=== PATIENT | female | born 1940 | race Caucasian/White ===

== ENCOUNTER 2019-02-16 19:20 | Observation (INO) ==
--- NOTE | 2019-02-16 19:40 | ERNOTE ---
Lower Extremity HPI - Narrative Date of Service: 02/16/19 - General Lower Extremities Pain: ankle: left Time Seen by Provider: 02/16/19 19:32 Source: patient Exam Limitations: no limitations - Immun/Allergies/Home Medications Immunizations: IMMUNIZATION HX Immunizations Up to Date Yes History of Influenza Vaccine No Hx Pneumococcal Vaccination Yes Allergies/Adverse Reactions: Allergies Allergy/AdvReac Type Severity Reaction Status Date / Time camphor [From Vicks Vaporub] Allergy Itching Verified 02/16/19 19:28 eucalyptus Allergy Itching Verified 02/16/19 19:28 [From Vicks Vaporub] menthol [From Vicks Vaporub] Allergy Itching Verified 02/16/19 19:28 petrolatum,white Allergy Itching Verified 02/16/19 19:28 [From Vicks Vaporub] turpentine oil Allergy Itching Verified 02/16/19 19:28 [From Vicks Vaporub] poison oak extract AdvReac Mild rash Verified 02/16/19 19:28 [Poison [place] Extract] sulfamethoxazole AdvReac Mild Itching Verified 02/16/19 19:28 [From Bactrim DS] trimethoprim AdvReac Mild Itching Verified 02/16/19 19:28 [From Bactrim DS] Home Medications: HOME MEDICATIONS Calcium Carbonate/Vitamin D3 [Calcium 600 + Vit D 400 Tablet] 1 tab PO BID 09/25/14 [Last Taken Unknown] atorvastatin 20 mg tablet 20 mg PO DAILY #90 tab 06/25/18 [Last Taken Unknown] levothyroxine 75 mcg tablet 75 mcg PO DAILY #90 tab 06/25/18 [Last Taken Unknown] albuterol sulfate HFA 90 mcg/actuation aerosol inhaler 2 puff IH Q4H PRN #18 g 12/31/18 [Last Taken Unknown] ipratropium-albuterol 0.5 mg-3 mg(2.5 mg base)/3 mL nebulization soln 3 ml IH BID #90 ml 12/31/18 [Last Taken Unknown] Amlodipine Besylate 5 mg PO DAILY 01/28/19 [Last Taken Unknown] vit C 250 mg-E 200 unit-zinc 40 mg-copper 1 cv-anussf-fyegpa capsule 1 tab PO BI D 02/05/19 [Last Taken Unknown] Lisinopril [Zestril] 40 mg PO DAILY 02/16/19 [Last Taken Unknown] - Pain Score Pain Score #1 Pain Score: 10 - History of Present Illness Narrative: The patient is a 78 year old female who presents for left lateral ankle pain which has been present for 1 week. There are associated symptoms of fatigue and lateral ankle edema. The patient reports pain to left ankle, 10/10. There are no alleviating factors. There are aggravating factors of ROM and weight bearing. Previous treatments have included: Advil taken yesterday without improvement. The past medical history includes: DJD and hypothyroid. The social history is positive for former smoker. The patient has had no ill contacts. Patient denies known injury. Review of Systems - Review of Systems Constitutional: Present: fatigue. Absent: fever EYE: Present: no symptoms reported ENT: Present: no symptoms reported. Absent: ear pain, nasal drainage, sore throat Respiratory: Present: no symptoms reported, cough Cardiology: Present: no symptoms reported Gastrointestinal/Abdominal: Present: no symptoms reported. Absent: nausea, vomiting, diarrhea Genitourinary: Present: no symptoms reported Musculoskeletal: Present: joint pain, joint swelling Skin: Present: change in color Neurological: Present: no symptoms reported All Other Systems: All systems neg except as marked Medical History (Updated 02/16/19 @ 21:39 by GABE Correia) DJD (degenerative joint disease), lumbar Osteopenia Rosacea Spinal stenosis Thrombocytopenia Basal cell carcinoma Onset Date: ~2009 Femur fracture, right Foot fracture Radius fracture Surgical History: Surgical History (Updated 02/16/19 @ 21:39 by GABE Correia) H/O dilation and curettage Onset Date: ~2001 H/O removal of cyst Onset Date: ~2009 cyst removed from top of head, sternum, and a double cyst from throat-basil cell carcinoma Hip fracture requiring operative repair Onset Date: ~2015 CR with cephalomedullary fixation History of LAVH Onset Date: ~2009 History of carpal tunnel release Onset Date: ~2008 History of colonoscopy Onset Date: ~2010 History of total knee arthroplasty Onset Date: ~2014 S/P epidural steroid injection Family History: Family History (Updated 12/14/17 @ 12:15 by Shereen Schmitt) Brother Myocardial infarction Glaucoma Brother Glaucoma Brother Macular degeneration Father , Age 78 Cancer Lung Mother , Age 41 CVA (cerebral vascular accident) Hypertension Social History: (Last Reviewed 02/16/19 @ 19:38 by UNIQUE Rodriguez) Social History: Marital status: / lives independently: Yes household members: none current occupational status: retired Highest education level completed: 9th grade Tobacco: Smoking Status: Former smoker Alcohol: alcohol intake: never Dietary Habits: caffeine: Yes Physical Exam - Physical Exam General Appearance: Present: wd/wn, alert, mild distress Head Exam: Present: normal inspection Eye Exam: Normal inspection: bilateral Neck: Present: normal inspection Respiratory: Present: no respiratory distress, normal breath sounds, no accessory muscle use, lungs clear Cardiovascular/Chest: Present: regular rate, rhythm, no murmur Peripheral Pulses: N=norm/S=strong/W=weak/B=bound/A=absent: Dorsalis-pedis (L): Normal Extremity Exam: Present: decreased range of motion - pain and limitation with dorsiflexion and plantar flexion, bony tenderness, joint redness - left lateral ankle, joint swelling - left lateral ankle Neurological Exam: Present: alert, oriented, normal mood/affect, no motor/sensory deficits Skin Exam: Present: normal color, warm/dry Progress - Date and Time Seen: Date and Time: 02/16/19 20:51 In with assistance of for aspirate of left ankle synovial fluid. Medial approach, 1% Lidocaine used for local anesthesia, no fluid returned with use of 20g needle under sterile procedure. Discussed exam and lab findings with Hector Pop, will discuss with medicine. 02/16/19 21:03 Discussed case with , feels that the joint should be aspirated and if not available then admit for IV antibiotics. Hector Pop sent message via [employer], will present to attempt aspiration. 02/16/19 21:37 Small amount of synovial fluid obtained by Hector BERNAL and sent to lab for available testing. Discussed with and will admit for IV antibiotics with ordered testing pending. Will cover patient for cellulitis vs joint infection. After discussion with , requests Vanco and Rocephin. - Results and Orders Patient's Lab Results:: I have reviewed the patient's lab results. - Vital Signs Patient's Vital Signs:: I have reviewed the patient's vital signs. Vital Signs: Vital Signs 02/16/19 19:24 Temperature 37.1 C Pulse Rate 91 Respiratory Rate 16 Blood Pressure 176/71 H O2 Sat by Pulse Oximetry 98 - X-Ray X-Ray #1 X-Ray: ankle Interpretation: Reviewed by me X-ray Comments: No acute osseous abnormality. Arthritic changes. - Progress/Reassessment Chief Complaint: Ankle Injury/ Pain Progress:: Unchanged Departure Clinical Impression: Cellulitis Qualifiers: Site of cellulitis: extremity Site of cellulitis of extremity: lower extremity Laterality: left Qualified Code(s): L03.116 - Cellulitis of left lower limb - Departure Disposition: Still a patient Condition: Stable
[2019-02-16 20:01] LABS: Hematocrit 39.8 % (37.0-47.0); Hemoglobin 13.5 gm/dL (12.5-16.0); Mean Cell Volume 85.2 fl (78-100); Mean Corpuscular Hemoglobin 28.9 pg (27-31); Mean Corpuscular Hgb Conc 33.9 g/dl (32-36); Mean Platelet Volume 11.1 fl (8-12.5); Platelet Count 167 K/mm3 (150-450); Red Blood Count 4.67 M/mm3 (4.2-5.4); White Blood Count 14.8 K/mm3 (4.0-10.5)
[2019-02-16 20:05] LABS: Total Cells Counted 100
[2019-02-16 20:15] LABS: Dohle Bodies 1+; Lymphocyte 14 % (20-51); Monocyte 11 % (0-9); Neutrophil 75 % (42-75); Neutrophil # 11.1 K/mm3 (1.3-6.0); Platelet Estimate Normal (NORMAL)
[2019-02-16] MEDS ORDERED: HYDROcodone/ACETAMINOPHEN 1 EACH TABLET PO ONE (21:27)
[2019-02-16 21:32] LABS: Albumin * 3.4 gm/dl (3.4-5.0); Anion Gap 14.4 mmol/L (6.8-13.8); BUN/Creatinine Ratio 20.5 (9.0-21.6); Bilirubin, Total 0.7 mg/dL (0.0-1.1); Ca. Corrected For Albumin 9.5 mg/dL (8.4-10.2); Calcium * 9.3 mg/dL (7.9-10.9); Carbon Dioxide 27.1 mmol/L (24-32.6); Potassium 3.5 mmol/L (3.4-4.6); Total Protein 7.2 gm/dL (6.2-8.2)
[2019-02-16 21:35] LABS: Body Fluid Appearance BLOODY (CLEAR); Body Fluid Color RED (COLORLESS); Body Fluid WBC QNS /uL (0-1000)
--- NOTE | 2019-02-16 21:39 | CONS ---
[facility] - General Date of Service: 02/16/19 Narrative: 78-year-old female presents to the ER with worsening left ankle pain. She notes that it is gradually worsened over the past week. She also has had an area of redness that is continued to enlarge around her left ankle and foot. She notes this may have happened in the past and was treated with oral antibiotics. She notes that her pain is 910/10 currently. She has difficult pain with weightbearing and motion. Patient notes her pain is mildly better with rest however continues to be significant. Source: patient Exam Limitations: no limitations - History of Present Illness Allergies/Adverse Reactions: Allergies camphor [From Vicks Vaporub] Allergy (Verified 02/16/19 19:28) Itching eucalyptus [From Vicks Vaporub] Allergy (Verified 02/16/19 19:28) Itching menthol [From Vicks Vaporub] Allergy (Verified 02/16/19 19:28) Itching petrolatum,white [From Vicks Vaporub] Allergy (Verified 02/16/19 19:28) Itching turpentine oil [From Vicks Vaporub] Allergy (Verified 02/16/19 19:28) Itching poison oak extract [Poison [place] Extract] Adverse Reaction (Mild, Verified 02/16/19 19:28) rash sulfamethoxazole [From Bactrim DS] Adverse Reaction (Mild, Verified 02/16/19 19:28) Itching trimethoprim [From Bactrim DS] Adverse Reaction (Mild, Verified 02/16/19 19:28) Itching Home Medications: Home Medications Medication Instructions Recorded Last Taken Calcium Carbonate/Vitamin D3 1 tab PO BID 09/25/14 Unknown [Calcium 600 + Vit D 400 Tablet] atorvastatin 20 mg tablet 20 mg PO DAILY #90 tab 06/25/18 Unknown levothyroxine 75 mcg tablet 75 mcg PO DAILY #90 tab 06/25/18 Unknown albuterol sulfate HFA 90 2 puff IH Q4H PRN #18 g 12/31/18 Unknown mcg/actuation aerosol inhaler ipratropium-albuterol 0.5 mg-3 3 ml IH BID #90 ml 12/31/18 Unknown mg(2.5 mg base)/3 mL nebulization soln Amlodipine Besylate 5 mg PO DAILY 01/28/19 Unknown vit C 250 mg-E 200 unit-zinc 40 1 tab PO BID 02/05/19 Unknown mg-copper 1 pg-zylaqw-jxzgid capsule Lisinopril [Zestril] 40 mg PO DAILY 02/16/19 Unknown Procedures ASSIST VAG HYSTER(LAVH) (05/25/09) Administration of wqjogvnxxj-exmoisj-kmwtxndpw, combined (04/22/11) Application of splint (04/22/11) Colonoscopy (08/16/10) D & C NEC (03/23/09) Injection of anesthetic into spinal canal for analgesia (03/04/11) Injection of other agent into spinal canal (03/04/11) Injection of steroid (03/04/11) LAPAROSCOP REMOVE OVARIES/TUBES (05/25/09) Other x-ray of lumbosacral spine (03/04/11) Reposition Right Upper Femur with Intramedullary Internal Fixation Device, Percutaneous Approach (11/04/15) Total knee replacement (10/06/14) Physical Examination - Exam Vital Signs: Vital Signs - Last Taken Temp 37.1 C 02/16/19 19:24 Pulse 91 02/16/19 19:24 Resp 16 02/16/19 19:24 BP 176/71 H 02/16/19 19:24 Pulse Ox 98 02/16/19 19:24 O2 Oxygen Delivery Method Room Air Constitutional: Present: Alert, Cooperative, No distress Extremity: Present: other - LLE--> mild area of erythema with mild edema about left ankle that extends over tarsal bones, brisk distal capillary refill, sensation intact light touch, 4+/5 ankle plantarflexion and dorsiflexion, mild pain with motion - Results and Findings: Lab/Microbiology results last 24 hrs: Abnormal/Pending Laboratory Last 24 HRS 02/16/19 02/16/19 19:55 19:55 WBC 14.8 H Lymphocytes % (Manual) 14 L Monocytes % (Manual) 11 H Neutrophils # (Manual) 11.1 H Monocytes # (Manual) 1.6 H C-Reactive Prot, Quant 12.0 H - Assessments/Findings (1) Infection of left foot Problem: Acute Plan - Plan Plan: -78-year-old female presents to the ER with worsening left foot pain -Basic labs are drawn revealed an elevated white count and CRP -Exam reveals area of erythema, concern for cellulitic infection versus deep joint infection -Aspiration was attempted only a small amount of synovial joint fluid was obtained, this was sent to lab for cell count, culture, Gram stain, crystals -Discussed with ER providers admittance to medicine team for possible cellulitis infection of the left foot, can continue to monitor if significant pain continues could consider radiology guided aspiration of the left ankle for better isolation of joint fluid -Recommend use of antibiotics and possible observation to monitor patient's continuing symptoms -Patient at this time will have continued care with medicine can call orthopedic provider if significant concern for joint infection continues -Noted area of erythema has been marked on 02/16/2019 at 2130 -Note patient also states that she has a previous history of similar type infections that have been treated with oral antibiotics in the past and have resolved she notes this does not happened recently
--- NOTE | 2019-02-16 21:43 | PN ---
Progess Note - Interim Date: 02/16/19 - Aspiration left ankle joint procedure Time: 21:40 Narrative: 02/16/19 21:40 Procedure note for left ankle joint aspiration -One attempt was made, a small amount less than 1 cc of synovial fluid that was blood-tinged was removed -Area was marked prior to aspiration, appropriate we cleaned with Betadine swabs -Sterile gloves and supplies were used to perform an ankle aspiration on the left using a 10 cc syringe with a 20-gauge needle through the anterior lateral approach -Hemostasis was obtained postoperatively, bandages applied -Patient tolerated the procedure well without significant complications -Patient was neurovascular intact prior to aspiration and post aspiration attempt
[2019-02-16] MEDS ORDERED: VANCOMYCIN HCL 1 GM in DEXTROSE 5 % IN WATER 250 ML IV ONE ×2 (21:47)
[2019-02-16] MEDS ORDERED: FLU VACC QS2019-20(6MOS UP)/PF 60 MCG/0.5 ML SYRINGE IM ONE (23:43)
[2019-02-17] MEDS: HYDROcodone/ACETAMINOPHEN 1 EACH TABLET PO PRN ×3 (00:53→13:22)
--- NOTE | 2019-02-17 08:29 | HP ---
Chief Complaint - Chief Complaint Date of Service: 02/17/19 Time of Service: 08:28 Chief Complaint: left ankle pain History of Present Illness: Patient with past medical history of hypertension, hypothyroidism presented with 5-day history of left ankle pain. She is also had less energy. It got to the point where she could not bear weight and she came to the ER. She did have some lateral erythema. She feels like she was treated with antibiotics in the past for skin infection. She also thinks her PCP has mentioned gout in the past. She tries to avoid going to the doctor. In the ED, joint aspiration was done by Ortho. She was started on antibiotics, vancomycin and Rocephin, for potential cellulitis. This morning, she reports possibly feeling a little bit better. She thinks the redness has improved. The aspirate from her ankle joint did show some uric acid crystals. No white blood cells were seen. She had an elevated CRP and a mildly elevated white blood cell count 14. Medical History (Updated 02/16/19 @ 23:14 by Colette Mcmahon RN) DJD (degenerative joint disease), lumbar Osteopenia Rosacea Spinal stenosis Thrombocytopenia Basal cell carcinoma Onset Date: ~2009 Femur fracture, right Foot fracture Radius fracture Surgical History: Surgical History (Updated 02/16/19 @ 21:39 by GABE Correia) H/O dilation and curettage Onset Date: ~2001 H/O removal of cyst Onset Date: ~2009 cyst removed from top of head, sternum, and a double cyst from throat-basil cell carcinoma Hip fracture requiring operative repair Onset Date: ~2015 CR with cephalomedullary fixation History of LAVH Onset Date: ~2009 History of carpal tunnel release Onset Date: ~2008 History of colonoscopy Onset Date: ~2010 History of total knee arthroplasty Onset Date: ~2014 S/P epidural steroid injection Family History: Family History (Updated 12/14/17 @ 12:15 by Shereen Schmitt) Brother Myocardial infarction Glaucoma Brother Glaucoma Brother Macular degeneration Father , Age 78 Cancer Lung Mother , Age 41 CVA (cerebral vascular accident) Hypertension Social History: (Last Reviewed 02/16/19 @ 23:16 by Colette Mcmahon RN) Social History: Marital status: / lives independently: Yes household members: none current occupational status: retired Highest education level completed: 9th grade Tobacco: Smoking Status: Former smoker Alcohol: alcohol intake: never Dietary Habits: caffeine: Yes Review Of Systems (GEN) - Review of Systems Generalized/Overall Review: Present: Fatigue. Absent: Fever Respiratory: Present: Shortness of Breath. Absent: Cough Cardiac: Absent: Chest Pain, Edema Abdominal: Absent: Nausea Genitourinary: Present: Urgency Musculoskeletal: Present: Joint Pain Neurological: Present: No Symptoms Reported Skin: Present: Change in Color Immunizations: IMMUNIZATION HX Immunizations Up to Date Yes History of Influenza Vaccine No Hx Pneumococcal Vaccination Yes Allergies/Adverse Reactions: Allergies Allergy/AdvReac Type Severity Reaction Status Date / Time camphor [From Vicks Vaporub] Allergy Itching Verified 02/16/19 23:17 eucalyptus Allergy Itching Verified 02/16/19 23:17 [From Vicks Vaporub] menthol [From Vicks Vaporub] Allergy Itching Verified 02/16/19 23:17 petrolatum,white Allergy Itching Verified 02/16/19 23:17 [From Vicks Vaporub] turpentine oil Allergy Itching Verified 02/16/19 23:17 [From Vicks Vaporub] poison oak extract AdvReac Mild rash Verified 02/16/19 23:17 [Poison [place] Extract] sulfamethoxazole AdvReac Mild Itching Verified 02/16/19 23:17 [From Bactrim DS] trimethoprim AdvReac Mild Itching Verified 02/16/19 23:17 [From Bactrim DS] Home Medications: HOME MEDICATIONS Calcium Carbonate/Vitamin D3 [Calcium 600 + Vit D 400 Tablet] 1 tab PO BID 09/25/14 [Last Taken Unknown] atorvastatin 20 mg tablet 20 mg PO DAILY #90 tab 06/25/18 [Last Taken Unknown] levothyroxine 75 mcg tablet 75 mcg PO DAILY #90 tab 06/25/18 [Last Taken Unknown] albuterol sulfate HFA 90 mcg/actuation aerosol inhaler 2 puff IH Q4H PRN #18 g 12/31/18 [Last Taken Unknown] ipratropium-albuterol 0.5 mg-3 mg(2.5 mg base)/3 mL nebulization soln 3 ml IH BID #90 ml 12/31/18 [Last Taken Unknown] Amlodipine Besylate 5 mg PO DAILY 01/28/19 [Last Taken Unknown] vit C 250 mg-E 200 unit-zinc 40 mg-copper 1 nd-mgaype-lnaczz capsule 1 tab PO BID 02/05/19 [Last Taken Unknown] Ibuprofen 400 mg PO PRN PRN 02/16/19 [Last Taken Unknown] Lisinopril [Zestril] 40 mg PO DAILY 02/16/19 [Last Taken Unknown] Exam - Exam Vital Signs: Vital Signs - Last Taken Temp 36.4 C 02/17/19 06:36 Pulse 82 02/17/19 06:36 Resp 16 02/17/19 06:36 BP 111/72 02/17/19 06:36 Pulse Ox 96 02/17/19 06:36 Constitutional: Present: Alert, Oriented x3, Cooperative, Well developed, No distress Respiratory: Present: lungs clear, normal breath sounds, no respiratory distress Cardiovascular/Chest: Present: regular rate, rhythm Abdomen: Present: Normal bowel sounds, soft, nontender Extremity: Absent: lower extremity edema Skin Exam: Present: other - Minimal erythema well within the borders of the delineated regions of her ankle Diagnostic Studies: Abnormal Lab Results 02/16/19 02/16/19 02/16/19 Range/Units 19:55 19:55 19:55 WBC 14.8 H (4.0-10.5) K/mm3 Lymphocytes % (Manual) 14 L (20-51) % Monocytes % (Manual) 11 H (0-9) % Neutrophils # (Manual) 11.1 H (1.3-6.0) K/mm3 Monocytes # (Manual) 1.6 H (0.0-1.0) k/mm3 Chloride 96 L (97-106) mmol/L Anion Gap 14.4 H (6.8-13.8) mmol/L Random Glucose 136 H (70-110) mg/dL ALT 11 L (19-67) U/L C-Reactive Prot, Quant 12.0 H (0.0-0.9) mg/dL Synovial Crystals (NO CRYSTALS) 02/16/19 Range/Units 21:29 WBC (4.0-10.5) K/mm3 Lymphocytes % (Manual) (20-51) % Monocytes % (Manual) (0-9) % Neutrophils # (Manual) (1.3-6.0) K/mm3 Monocytes # (Manual) (0.0-1.0) k/mm3 Chloride (97-106) mmol/L Anion Gap (6.8-13.8) mmol/L Random Glucose (70-110) mg/dL ALT (19-67) U/L C-Reactive Prot, Quant (0.0-0.9) mg/dL Synovial Crystals Uric acid crystals H (NO CRYSTALS) Microbiology 02/16/19 21:29 Gram Stain - Final Ankle - Left Laboratory Results WBC 14.8 K/mm3 (4.0-10.5) H 02/16/19 19:55 RBC 4.67 M/mm3 (4.2-5.4) 02/16/19 19:55 Hgb 13.5 gm/dL (12.5-16.0) 02/16/19 19:55 Hct 39.8 % (37.0-47.0) 02/16/19 19:55 MCV 85.2 fl (78-100) 02/16/19 19:55 MCH 28.9 pg (27-31) 02/16/19 19:55 MCHC 33.9 g/dl (32-36) 02/16/19 19:55 RDW 13.0 % (11.5-14.0) 02/16/19 19:55 Plt Count 167 K/mm3 (150-450) 02/16/19 19:55 MPV 11.1 fl (8-12.5) 02/16/19 19:55 75 % (42-75) 02/16/19 19:55 14 % (20-51) L 02/16/19 19:55 11 % (0-9) H 02/16/19 19:55 11.1 K/mm3 (1.3-6.0) H 02/16/19 19:55 2.1 k/mm3 (1.5-3.5) 02/16/19 19:55 1.6 k/mm3 (0.0-1.0) H 02/16/19 19:55 1+ 02/16/19 19:55 Normal (NORMAL) 02/16/19 19:55 Sodium 134 mmol/L (132-142) 02/16/19 19:55 135 mmol/L (130-142) 02/16/19 19:55 Potassium 3.5 mmol/L (3.4-4.6) 02/16/19 19:55 Chloride 96 mmol/L (97-106) L 02/16/19 19:55 Carbon Dioxide 27.1 mmol/L (24-32.6) 02/16/19 19:55 14.4 mmol/L (6.8-13.8) H 02/16/19 19:55 BUN 15 mg/dL (3-23) 02/16/19 19:55 0.73 mg/dL (0.4-1.4) 02/16/19 19:55 Est GFR (Non-Af Amer) 82 mL/min (60-130) 02/16/19 19:55 20.5 (9.0-21.6) 02/16/19 19:55 136 mg/dL (70-110) H 02/16/19 19:55 3.0 mg/dL (2.6-7.2) 02/16/19 19:55 Calcium 9.3 mg/dL (7.9-10.9) 02/16/19 19:55 Calcium Adj for Albumin 9.5 mg/dL (8.4-10.2) 02/16/19 19:55 0.7 mg/dL (0.0-1.1) 02/16/19 19:55 AST 11 U/L (0-48) 02/16/19 19:55 ALT 11 U/L (19-67) L 02/16/19 19:55 87 U/L (50-170) 02/16/19 19:55 C-Reactive Prot, Quant 12.0 mg/dL (0.0-0.9) H 02/16/19 19:55 7.2 gm/dL (6.2-8.2) 02/16/19 19:55 3.4 gm/dl (3.4-5.0) 02/16/19 19:55 Fluid Color Red (COLORLESS) 02/16/19 21:29 Fluid Appearance Bloody (CLEAR) 02/16/19 21:29 Fluid WBC QNS 02/16/19 21:29 Fluid RBC QNS 02/16/19 21:29 Fluid Diff Comment No wbc's seen 02/16/19 21:29 Synovial Crystals Uric acid crystals (NO CRYSTALS) H 02/16/19 21:29 Assessment/Plan - Assessment/Plan (1) Infection of left foot Assessment: Differential includes gout, septic joint, cellulitis. On this morning's exam, gout seems most likely. She appears to have possible tophi on her finger DIP joints of bilateral second digits. She reports being told she may have had gout in the past. 500 mg naproxen twice daily has been ordered. She was also started on antibiotics last night, specifically Vanco and Rocephin. Her physical exam does not appear to be cellulitic this morning. Her white cell count was slightly elevated at 14.8. CRP was elevated to 12. Procalcitonin pending. If this is elevated, will continue p.o. antibiotics, and if not, will DC. She reports drinking a small amount of wine when she can't sleep, which could contribute. Potential discharge later today if her pain is controlled. Problem: Acute (2) COPD (chronic obstructive pulmonary disease) Assessment: She reports this is a chronic issue, and her shortness of breath is not increased from baseline. COPD is listed in her problem list in her chart. Recommend PFTs as an outpatient if this has not already been done. Problem: Chronic Qualifiers: COPD type: COPD with acute exacerbation Qualified Code(s): J44.1 - Chronic obstructive pulmonary disease with (acute) exacerbation (3) HTN (hypertension) Assessment: Her blood pressure is a bit low this morning, so will hold her home amlodipine and lisinopril. Can restart if her blood pressure is persistently greater than 130/80. Problem: Chronic Qualifiers: Hypertension type: essential hypertension Qualified Code(s): I10 - Essential (primary) hypertension
[2019-02-17] MEDS ORDERED: ALBUTEROL SULFATE 2.5 MG/0.5 ML VIAL.NEB IH PRN (08:53)
[2019-02-17] MEDS ORDERED: ROSUVASTATIN CALCIUM 10 MG TABLET PO SCH (09:00)
[2019-02-17] MEDS ORDERED: NAPROXEN 500 MG TABLET PO SCH (09:00)
[2019-02-17] MEDS ORDERED: FLU VACC QS2019-20(6MOS UP)/PF 60 MCG/0.5 ML SYRINGE IM ONE (09:00)
[2019-02-17] MEDS ORDERED: ALBUTEROL SULFATE/IPRATROPIUM 3 ML NEBU IH SCH (09:00)
[2019-02-17] MEDS ORDERED: LEVOTHYROXINE SODIUM 75 MCG TABLET PO SCH (09:00)
[2019-02-17] MEDS ORDERED: VANCOMYCIN HCL 1.5 GM in DEXTROSE 5 % IN WATER 500 ML IV SCH ×2 (11:00)
--- NOTE | 2019-02-17 14:36 | DS ---
(1) Gout Problem: Acute Qualifiers: Gout site: ankle (2) COPD (chronic obstructive pulmonary disease) Problem: Chronic Qualifiers: COPD type: COPD with acute exacerbation Qualified Code(s): J44.1 - Chronic obstructive pulmonary disease with (acute) exacerbation (3) HTN (hypertension) Problem: Chronic Qualifiers: Hypertension type: essential hypertension Qualified Code(s): I10 - Essential (primary) hypertension Date of Discharge:: 02/17/19 Description of Stay: Patient with past medical history of hypertension, hypothyroidism presented with 5-day history of left ankle pain. She is also had less energy. It got to the point where she could not bear weight and she came to the ER. She did have some lateral erythema. She feels like she was treated with antibiotics in the past for skin infection. She also thinks her PCP has mentioned gout in the past. S he tries to avoid going to the doctor. In the ED, joint aspiration was done by Ortho. She was started on antibiotics, vancomycin and Rocephin, for potential cellulitis. The morning after admission, she reports possibly feeling a little bit better. She thinks the redness has improved. The aspirate from her ankle joint did show some uric acid crystals. No white blood cells were seen. She had an elevated CRP and a mildly elevated white blood cell count 14. Procalcitonin was not elevated, and the abx were stopped, and 500 mg naproxen bid was started. The day of DC, she was able to walk with a walker without difficulty. Discussed reducing red wine, hard cheese, beef intake. Procedures Performed: see notes below - ankle joint aspiration Results and Findings: Lab Pending Results 02/16/19 19:55: WBC 14.8 H, RBC 4.67, Hgb 13.5, Hct 39.8, MCV 85.2, MCH 28.9, MCHC 33.9, RDW 13.0, Plt Count 167, MPV 11.1, Neutrophils % (Manual) 75, Lymphocytes % (Manual) 14 L, Monocytes % (Manual) 11 H, Neutrophils # (Manual) 11.1 H, Lymphocytes # (Manual) 2.1, Monocytes # (Manual) 1.6 H, Dohle Bodies 1+, Platelet Estimate Normal 02/16/19 19:55: Uric Acid 3.0, C-Reactive Prot, Quant 12.0 H 02/16/19 19:55: Sodium 134, Plasma Sodium 135, Potassium 3.5, Chloride 96 L, Ca rbon Dioxide 27.1, Anion Gap 14.4 H, BUN 15, Creatinine 0.73, Est GFR (Non-Af Amer) 82, BUN/Creatinine Ratio 20.5, Random Glucose 136 H, Calcium 9.3, Calcium Adj for Albumin 9.5, Total Bilirubin 0.7, AST 11, ALT 11 L, Alkaline Phosphatase 87, Total Protein 7.2, Albumin 3.4 02/16/19 21:29: Fluid Color Red, Fluid Appearance Bloody, Fluid WBC QNS, Fluid RBC QNS, Fluid Diff Comment No wbc's seen, Synovial Crystals Uric acid crystals H 02/17/19 : Procalcitonin Less than 0.05 L Discharge Location: Home Disposition: Home self-care Condition: Stable Discharge Activity: Activity as tolerated Discharge Diet: General/regular food Referrals: Nancy Ruiz MD [Primary Care Provider] - One Week Prescriptions (Any new or edited meds): Naproxen [Naprosyn] 500 mg PO BID #13 tab Complete Home Medications List: Complete Home Medication List: Calcium Carbonate/Vitamin D3 [Calcium 600 + Vit D 400 Tablet] 1 tab PO BID 09/25/14 atorvastatin 20 mg tablet 20 mg PO DAILY #90 tab 06/25/18 levothyroxine 75 mcg tablet 75 mcg PO DAILY #90 tab 06/25/18 albuterol sulfate HFA 90 mcg/actuation aerosol inhaler 2 puff IH Q4H PRN #18 g 12/31/18 ipratropium-albuterol 0.5 mg-3 mg(2.5 mg base)/3 mL nebulization soln 3 ml IH BID #90 ml 12/31/18 Amlodipine Besylate 5 mg PO DAILY 01/28/19 vit C 250 mg-E 200 unit-zinc 40 mg-copper 1 [id number] capsule 1 tab PO BID 02/05/19 Ibuprofen 400 mg PO PRN PRN 02/16/19 Lisinopril [Zestril] 40 mg PO DAILY 02/16/19 Naproxen [Naprosyn] 500 mg PO BID #13 tab 02/17/19
[2019-02-17 18:34] VITALS: BP 142/64
[2019-02-18] MEDS ORDERED: amLODIPine BESYLATE 5 MG TABLET PO SCH (09:00)
[2019-02-18] MEDS ORDERED: LISINOPRIL 40 MG TABLET PO SCH (09:00)
== END 2019-02-17 16:15 | disposition home or self-care (01) ==
LOC: ER 19:20 → MS 19:20
PROVIDERS: ADMIT Family Medicine; ATTEND Internal Medicine
CPT/HCPCS: 36415; 73610; 80053; 84145; 84550; 85025; 86140; 87040; 87205; 89051; 89060; 90686; 94640; 94664; 96365; 96366; 96367; 99285; G0008; G0378

== ENCOUNTER 2020-10-20 12:07 | Inpatient (IN) ==
--- NOTE | 2020-10-20 12:30 | ERNOTE ---
Medical Problem HPI - Narrative Date of Service: 10/20/20 - General Chief Complaint: Nausea/Vomiting Time Seen by Provider: 10/20/20 12:13 Source: patient, EMS Exam Limitations: no limitations - Immun/Allergies/Home Medications Immunizations: IMMUNIZATION HX Immunizations Up to Date Yes History of Influenza Vaccine Yes Hx Pneumococcal Vaccination Yes Allergies/Adverse Reactions: Allergies camphor [From Vicks Vaporub] Allergy (Verified 10/13/20 09:30) Itching eucalyptus [From Vicks Vaporub] Allergy (Verified 10/13/20 09:30) Itching menthol [From Vicks Vaporub] Allergy (Verified 10/13/20 09:30) Itching petrolatum,white [From Vicks Vaporub] Allergy (Verified 10/13/20 09:30) Itching turpentine oil [From Vicks Vaporub] Allergy (Verified 10/13/20 09:30) Itching poison oak extract [Poison [place] Extract] Adverse Reaction (Mild, Verified 10/13/20 09:30) rash sulfamethoxazole [From Bactrim DS] Adverse Reaction (Mild, Verified 10/13/20 09:30) Itching trimethoprim [From Bactrim DS] Adverse Reaction (Mild, Verified 10/13/20 09:30) Itching Home Medications: HOME MEDICATIONS Calcium Carbonate/Vitamin D3 [Calcium 600 + Vit D 400 Tablet] 1 tab PO BID 09/25/14 [Last Taken Unknown] ipratropium 0.5 mg-albuterol 3 mg (2.5 mg base)/3 mL nebulization soln 3 ml IH BID #90 ml 12/31/18 [Last Taken Unknown] vit C 250 mg-vit E 90 mg-zinc 40 mg-copper 1 ez-[id number]-[id number] capsule 1 tab PO BID 02/05/19 [Last Taken Unknown] Ibuprofen 400 mg PO PRN PRN 02/16/19 [Last Taken Unknown] Naproxen [Naprosyn] 500 mg PO BID #13 tab 02/17/19 [Last Taken Unknown] lisinopril 20 mg tablet 40 mg PO DAILY 05/08/19 [Last Taken Unknown] tramadol 50 mg tablet 50 mg PO TID PRN #45 tab 11/06/19 [Last Taken Unknown] albuterol sulfate 90 mcg/actuation aerosol inhaler 2 puff IH Q4H PRN #18 g 03/26/20 [Last Taken Unknown] atorvastatin 20 mg tablet 20 mg PO DAILY #90 tab 07/02/20 [Last Taken Unknown] levothyroxine 75 mcg tablet 75 mcg PO DAILY #90 tab 07/02/20 [Last Taken Unknown] Colchicine [Colcrys] 0.6 mg PO prn 10/07/20 [Last Taken Unknown] Cyclobenzaprine HCl [Flexeril] 10 mg PO TID PRN #20 tab 10/07/20 [Last Taken Unknown] Vit A/Vit C/Vit E/Zinc/Copper [Preservision Areds Tablet] 2 ea PO DAILY 10/07/20 [Last Taken Unknown] bumetanide 2 mg tablet 2 mg PO DAILY #30 tab 10/13/20 [Last Taken Unknown] levofloxacin 500 mg tablet 500 mg PO DAILY 10 Days #10 tab 10/13/20 [Last Taken Unknown] - History of Present History Narrative: Diagnosed with pneumonia last week 10/10 had large stool this am and felt very weak, [facility]. Alert c/o loose stool and weakness. Not SOB not confused no fever. Date (Duration): 10/20/20 Time (Timing): 10:00 Timing: constant Severity: moderate Review of Systems - Review of Systems Constitutional: Present: See HPI, weakness ENT: Present: no symptoms reported Gastrointestinal/Abdominal: Present: See HPI, diarrhea, eating less Genitourinary: Present: no symptoms reported Psych: Present: no symptoms reported Medical History (Last Reviewed 10/20/20 @ 12:28 by Diego Schwartz MD) COPD (chronic obstructive pulmonary disease) Neck strain DJD (degenerative joint disease), lumbar Osteopenia Rosacea Spinal stenosis Thrombocytopenia Basal cell carcinoma Onset Date: ~2009 Femur fracture, right Foot fracture Radius fracture Surgical History: Surgical History (Last Reviewed 10/20/20 @ 12:28 by Diego Schwartz MD) H/O dilation and curettage Onset Date: ~2001 H/O removal of cyst Onset Date: ~2009 cyst removed from top of head, sternum, and a double cyst from throat-basil cell carcinoma Hip fracture requiring operative repair Onset Date: ~2015 CR with cephalomedullary fixation History of LAVH Onset Date: ~2009 History of carpal tunnel release Onset Date: ~2008 History of colonoscopy Onset Date: ~2010 History of total knee arthroplasty Onset Date: ~2014 S/P epidural steroid injection Family History: Family History (Last Reviewed 10/20/20 @ 12:28 by Diego Schwartz MD) Brother Glaucoma Myocardial infarction Brother Glaucoma Brother Macular degeneration Father , Age 78 Cancer Lung Mother , Age 41 Hypertension CVA (cerebral vascular accident) Social History: (Last Reviewed 10/20/20 @ 12:28 by Diego Schwartz MD) Social History: Marital status: / lives independently: Yes household members: none current occupational status: retired Highest level of school completed/degree received: 9th grade Tobacco: Smoking Status: Former smoker Alcohol: alcohol intake: never Dietary Habits: caffeine: Yes Physical Exam - Physical Exam General Appearance: Present: wd/wn, alert, no apparent distress Head Exam: Present: normal inspection Eye Exam: Normal inspection: bilateral Ears, Nose, Throat: Present: normal ENT inspection Respiratory: Present: no respiratory distress, decreased breath sounds - Decreased on R hemithorax Cardiovascular/Chest: Present: regular rate, rhythm, no murmur Gastrointestinal/Abdominal: Present: normal bowel sounds, nondistended, soft Rectal Exam: Present: other - 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 Results and Orders: Laboratory Tests 10/20/20 12:23 Sodium 140 Potassium 3.2 L Chloride 98 Carbon Dioxide 31.1 Anion Gap 14.1 H BUN 30 H D Creatinine 0.98 Random Glucose 145 H Laboratory Tests 11/06/15 11/07/15 12/09/19 05:50 05:03 15:50 WBC RBC Hgb Hct MCV MCH MCHC Plt Count Neutrophils % (Manual) Segmented Neutrophils 89 H Band Neutrophils 4 H Lymphocytes % ESR 22 H 10/10/20 10/20/20 20:00 12:23 WBC 35.1 H RBC 5.43 H Hgb 14.8 Hct 45.7 MCV 84.2 MCH 27.3 MCHC 32.4 Plt Count 258 Neutrophils % (Manual) 85 H Segmented Neutrophils Band Neutrophils Lymphocytes % 18.3 L ESR Laboratory Tests 10/20/20 12:23 Lactic Acid, Venous 2.8 H* - Vital Signs Patient's Vital Signs:: I have reviewed the patient's vital signs. Vital Signs: Vital Signs 10/20/20 12:09 Temperature 36.7 C Pulse Rate 98 Respiratory Rate 17 Blood Pressure 186/76 H O2 Sat by Pulse Oximetry 97 - Progress/Reassessment Chief Complaint: Nausea/Vomiting Progress:: Unchanged Progress Note-Subjective: 10/20/20 14:02 Pt remains weak, nauseous. WBC 35.1 Lactate 2.8 but CXR read as unremarkable. Blood cultures and urine culture requested, may be obscured by treatment CASING COOKER with Levaquin. I have paged Dr. Ruiz requesting admission for IVF and antibiotics. Awaiting call back. 10/20/20 14:20 Dr. Ruiz agrees wtih admit due to failure of outpt tx, requests Rocephin IV. See orders. - Transfer of Care Expected Disposition: Admit - Failure of outpatient tx. Departure Clinical Impression: UTI (urinary tract infection), bacterial, Leukocytosis - Departure Disposition: Short Term Hospital Inpatient Condition: Fair Additional Instructions: Admission discussed with Dr. Sands See orders. Referrals: Nancy Ruiz MD [Primary Care Provider] -
[2020-10-20 12:35] LABS: Hematocrit 45.7 % (37.0-47.0); Hemoglobin 14.8 gm/dL (12.5-16.0); Mean Cell Volume 84.2 fl (78-100); Mean Corpuscular Hemoglobin 27.3 pg (27-31); Mean Corpuscular Hgb Conc 32.4 g/dl (32-36); Mean Platelet Volume 11.9 fl (8-12.5); Platelet Count 258 K/mm3 (150-450); Red Blood Count 5.43 M/mm3 (4.2-5.4); Red Cell Distribution Width 13.6 % (11.5-14.0); White Blood Count 35.1 K/mm3 (4.0-10.5)
[2020-10-20 12:39] LABS: Total Cells Counted 100
[2020-10-20] MEDS ORDERED: NORMAL SALINE 1,000 ML IV ONE (12:49)
[2020-10-20 12:50] LABS: Albumin * 3.7 gm/dl (3.4-5.0); Anion Gap 14.1 mmol/L (6.8-13.8); BUN/Creatinine Ratio 30.6 (9.0-21.6); Bilirubin, Total 1.1 mg/dL (0.0-1.1); Ca. Corrected For Albumin 9.5 mg/dL (8.4-10.2); Calcium * 9.6 mg/dL (7.9-10.9); Carbon Dioxide 31.1 mmol/L (24-32.6); Potassium 3.2 mmol/L (3.4-4.6); Total Protein 7.2 gm/dL (6.2-8.2)
[2020-10-20 12:53] LABS: Lymphocyte 6 % (20-51); Monocyte 9 % (0-9); Neutrophil 85 % (42-75); Neutrophil # 29.8 K/mm3 (1.3-6.0); Platelet Estimate Normal (NORMAL); RBC Morphology Normal (NORMAL)
[2020-10-20] MEDS ORDERED: ALBUTEROL SULFATE 2.5 MG/3 ML VIAL.NEB IH ONE (13:14)
[2020-10-20] MEDS ORDERED: ONDANSETRON HCL/PF 2 MG/ML VIAL IV ONE (13:16)
[2020-10-20] MEDS ORDERED: cefTRIAXone SODIUM 1,000 MG/100 ML BAG IV ONE (14:19)
[2020-10-20 14:40] LABS: Urine Bilirubin Negative (NEGATIVE); Urine Blood Negative /ul (NEGATIVE); Urine Ketone Negative (NEGATIVE); Urine Nitrite Negative (NEGATIVE); Urine Protein 30 mg/dL (NEGATIVE); Urine Specific Gravity >=1.030 SP.GR. (1.005-1.010); Urine Urobilinogen Normal (NORMAL)
[2020-10-20 14:55] LABS: Urine Appearance Clear (CLEAR); Urine Bacteria TRACE; Urine Color Yellow; Urine Hyaline Cast 0-5 /LPF; Urine Mucus TRACE; Urine RBC TRACE /hpf (0-5); Urine WBC TRACE /hpf (0-5)
--- NOTE | 2020-10-20 16:21 | HP ---
Chief Complaint - Chief Complaint Date of Service: 10/20/20 Time of Service: 16:10 Chief Complaint: very weak History of Present Illness: Naomi Levin is a 80-year-old white female with past medical history significant for COPD, degenerative disc disease of the lumbar spine, spinal stenosis, idiopathic thrombocytopenia, gout who was admitted on 10/20/2020 because of sensation of feeling very weak. The patient was seen in the emergency room on 10/10/2020 and was treated with IV Rocephin x 1 and sent home on ciprofloxacin for pneumonia and UTI. She followed up with me on 10/13/2020 and she was still was not feeling well. Her chest x-ray showed chronic type findings with no acute cardiopulmonary findings. Her CT angiogram on 10/10/2020 did show bibasilar heterogeneous opacities possibly atelectasis but cannot rule out superimposed infection or aspiration. It was negative for his pulmonary embolism. The report of her urine culture and sensitivity came out late in the afternoon and it showed E. coli sensitive to both ciprofloxacin and Levaquin. Since we do not usually use ciprofloxacin for pneumonia we changed it to Levaquin. We also gave her prednisone 40 mg PO Q daily for 5 days and continued with her breathing treatments- inhalers and nebulizers for her shortness of breath and wheezing. She was instructed to return to clinic in 1 week and stay on a potassium rich diet list. The patient had runny large bowel movement this morning and felt very weak after that and so they called EMS. In the emergency room she was found to have a WBC count of 35,000 and a lactate of 2.8, K 3.2, Cr 0.98. Her chest x-ray showed chronic findings with no acute infiltrates. Her urinalysis was also unremarkable. The patient continued to be very weak and so she was admitted for further evaluation treatment having failed outpatient therapy. Medical History (Last Reviewed 10/20/20 @ 13:08 by Gina Myers RN) COPD (chronic obstructive pulmonary disease) Neck strain DJD (degenerative joint disease), lumbar Osteopenia Rosacea Spinal stenosis Thrombocytopenia Basal cell carcinoma Onset Date: ~2009 Femur fracture, right Foot fracture Radius fracture Surgical History: Surgical History (Last Reviewed 10/20/20 @ 13:08 by Gina Myers RN) H/O dilation and curettage Onset Date: ~2001 H/O removal of cyst Onset Date: ~2009 cyst removed from top of head, sternum, and a double cyst from throat-basil cell carcinoma Hip fracture requiring operative repair Onset Date: ~2015 CR with cephalomedullary fixation History of LAVH Onset Date: ~2009 History of carpal tunnel release Onset Date: ~2008 History of colonoscopy Onset Date: ~2010 History of total knee arthroplasty Onset Date: ~2014 S/P epidural steroid injection Family History: Family History (Last Reviewed 10/20/20 @ 13:08 by Gina Myers RN) Brother Myocardial infarction Glaucoma Brother Glaucoma Brother Macular degeneration Father , Age 78 Cancer Lung Mother , Age 41 CVA (cerebral vascular accident) Hypertension Social History: (Last Updated 10/20/20 @ 17:58 by Nancy Ruiz MD) Social History: Marital status: / lives independently: Yes household members: none current occupational status: retired Highest level of school completed/degree received: 9th grade Tobacco: Smoking Status: Former smoker Alcohol: alcohol intake: never Dietary Habits: caffeine: Yes Review Of Systems (GEN) - Review of Systems Generalized/Overall Review: Present: Weakness, Chills. Absent: Fever, Weight loss, Weight gain EENTM: Absent: Blurred Vision, Double Vision Respiratory: Present: Cough. Absent: Shortness of Breath, Orthopnea, Wheezing Cardiac: Absent: Chest Pain, Edema, Palpitations Abdominal: Present: Abdominal Pain. Absent: Nausea, Vomiting Genitourinary: Present: Urgency, Frequency. Absent: Burning, Itching Musculoskeletal: Present: Joint Pain, Back Pain Neurological: Absent: Headache Skin: Absent: Lesions, Rash Misc: All systems neg except as marked Immunizations: IMMUNIZATION HX Immunizations Up to Date Yes History of Influenza Vaccine Yes Hx Pneumococcal Vaccination Yes Allergies/Adverse Reactions: Allergies Allergy/AdvReac Type Severity Reaction Status Date / Time camphor [From Vicks Vaporub] Allergy Itching Verified 10/20/20 16:24 eucalyptus Allergy Itching Verified 10/20/20 16:24 [From Vicks Vaporub] menthol [From Vicks Vaporub] Allergy Itching Verified 10/20/20 16:24 petrolatum,white Allergy Itching Verified 10/20/20 16:24 [From Vicks Vaporub] turpentine oil Allergy Itching Verified 10/20/20 16:24 [From [employer] Vaporub] poison oak extract AdvReac Mild rash Verified 10/20/20 16:24 [Poison [place] Extract] sulfamethoxazole AdvReac Mild Itching Verified 10/20/20 16:24 [From Bactrim DS] trimethoprim AdvReac Mild Itching Verified 10/20/20 16:24 [From Bactrim DS] Home Medications: HOME MEDICATIONS Calcium Carbonate/Vitamin D3 [Calcium 600 + Vit D 400 Tablet] 1 tab PO BID 09/25/14 [Last Taken Unknown] ipratropium 0.5 mg-albuterol 3 mg (2.5 mg base)/3 mL nebulization soln 3 ml IH BID #90 ml 12/31/18 [Last Taken Unknown] vit C 250 mg-vit E 90 mg-zinc 40 mg-copper 1 [id number]-wsfbcs capsule 1 tab PO BID 02/05/19 [Last Taken Unknown] Ibuprofen 400 mg PO PRN PRN 02/16/19 [Last Taken Unknown] Naproxen [Naprosyn] 500 mg PO BID #13 tab 02/17/19 [Last Taken Unknown] lisinopril 20 mg tablet 40 mg PO DAILY 05/08/19 [Last Taken Unknown] tramadol 50 mg tablet 50 mg PO TID PRN #45 tab 11/06/19 [Last Taken Unknown] albuterol sulfate 90 mcg/actuation aerosol inhaler 2 puff IH Q4H PRN #18 g 03/26/20 [Last Taken Unknown] atorvastatin 20 mg tablet 20 mg PO DAILY #90 tab 07/02/20 [Last Taken Unknown] levothyroxine 75 mcg tablet 75 mcg PO DAILY #90 tab 07/02/20 [Last Taken Unknown] Colchicine [Colcrys] 0.6 mg PO prn 10/07/20 [Last Taken Unknown] Cyclobenzaprine HCl [Flexeril] 10 mg PO TID PRN #20 tab 10/07/20 [Last Taken Unknown] Vit A/Vit C/Vit E/Zinc/Copper [Preservision Areds Tablet] 2 ea PO DAILY 10/07/20 [Last Taken Unknown] bumetanide 2 mg tablet 2 mg PO DAILY #30 tab 10/13/20 [Last Taken Unknown] levofloxacin 500 mg tablet 500 mg PO DAILY 10 Days #10 tab 10/13/20 [Last Taken Unknown] Exam - Exam Vital Signs: Vital Signs - Last Taken Temp 36.7 C 10/20/20 12:09 Pulse 98 10/20/20 14:49 Resp 17 10/20/20 14:49 BP 145/64 10/20/20 14:49 Pulse Ox 95 10/20/20 14:49 Constitutional: Present: Alert, Oriented x3, Cooperative ENT Exam: Present: hearing grossly normal Eye Exam: bilateral eye: normal inspection, PERRL, EOMI Neck: Present: supple. Absent: lymphadenopathy (R), lymphadenopathy (L) Respiratory: Present: decreased breath sounds, crackles - fine, No rales, No wheezing Cardiovascular/Chest: Present: regular rate, rhythm, no JVD, no murmur Abdomen: Present: Normal bowel sounds, soft, tender - Slightly tender left lower quadrant, distended - Slightly distended Extremity: Present: no pedal edema, no calf tenderness Diagnostic Studies: Abnormal Lab Results 10/20/20 10/20/20 10/20/20 Range/Units 12:23 12:23 12:23 WBC 35.1 H (4.0-10.5) K/mm3 RBC 5.43 H (4.2-5.4) M/mm3 Neutrophils % (Manual) 85 H (42-75) % Lymphocytes % (Manual) 6 L (20-51) % Neutrophils # (Manual) 29.8 H (1.3-6.0) K/mm3 Monocytes # (Manual) 3.2 H (0.0-1.0) k/mm3 Potassium 3.2 L (3.4-4.6) mmol/L Anion Gap 14.1 H (6.8-13.8) mmol/L BUN 30 H D (3-23) mg/dL Est GFR (Non-Af Amer) 58 L D (60-130) mL/min BUN/Creatinine Ratio 30.6 H (9.0-21.6) Random Glucose 145 H (70-110) mg/dL Lactic Acid, Venous 2.8 H* (0.4-2.0) mmol/L Urine Protein (NEGATIVE) mg/dL Urine WBC (0-5) /hpf Hyaline Casts (NONE) /LPF 10/20/20 Range/Units 14:31 WBC (4.0-10.5) K/mm3 RBC (4.2-5.4) M/mm3 Neutrophils % (Manual) (42-75) % Lymphocytes % (Manual) (20-51) % Neutrophils # (Manual) (1.3-6.0) K/mm3 Monocytes # (Manual) (0.0-1.0) k/mm3 Potassium (3.4-4.6) mmol/L Anion Gap (6.8-13.8) mmol/L BUN (3-23) mg/dL Est GFR (Non-Af Amer) (60-130) mL/min BUN/Creatinine Ratio (9.0-21.6) Random Glucose (70-110) mg/dL Lactic Acid, Venous (0.4-2.0) mmol/L Urine Protein 30 H (NEGATIVE) mg/dL Urine WBC Trace H (0-5) /hpf Hyaline Casts 0-5 H (NONE) /LPF Laboratory Results WBC 35.1 K/mm3 (4.0-10.5) H 10/20/20 12:23 RBC 5.43 M/mm3 (4.2-5.4) H 10/20/20 12:23 Hgb 14.8 gm/dL (12.5-16.0) 10/20/20 12:23 Hct 45.7 % (37.0-47.0) 10/20/20 12:23 MCV 84.2 fl (78-100) 10/20/20 12:23 MCH 27.3 pg (27-31) 10/20/20 12:23 MCHC 32.4 g/dl (32-36) 10/20/20 12:23 RDW 13.6 % (11.5-14.0) 10/20/20 12:23 Plt Count 258 K/mm3 (150-450) 10/20/20 12:23 MPV 11.9 fl (8-12.5) 10/20/20 12:23 Neutrophils % (Manual) 85 % (42-75) H 10/20/20 12:23 Lymphocytes % (Manual) 6 % (20-51) L 10/20/20 12:23 Monocytes % (Manual) 9 % (0-9) 10/20/20 12:23 Neutrophils # (Manual) 29.8 K/mm3 (1.3-6.0) H 10/20/20 12:23 Lymphocytes # (Manual) 2.1 k/mm3 (1.5-3.5) 10/20/20 12:23 Monocytes # (Manual) 3.2 k/mm3 (0.0-1.0) H 10/20/20 12:23 Platelet Estimate Normal (NORMAL) 10/20/20 12:23 RBC Morphology Normal (NORMAL) 10/20/20 12:23 Sodium 140 mmol/L (132-142) 10/20/20 12:23 Plasma Sodium 141 mmol/L (130-142) 10/20/20 12:23 Potassium 3.2 mmol/L (3.4-4.6) L 10/20/20 12:23 Chloride 98 mmol/L (97-106) 10/20/20 12:23 Carbon Dioxide 31.1 mmol/L (24-32.6) 10/20/20 12:23 Anion Gap 14.1 mmol/L (6.8-13.8) H 10/20/20 12:23 BUN 30 mg/dL (3-23) H D 10/20/20 12:23 Creatinine 0.98 mg/dL (0.4-1.4) 10/20/20 12:23 Est GFR (Non-Af Amer) 58 mL/min (60-130) L D 10/20/20 12:23 BUN/Creatinine Ratio 30.6 (9.0-21.6) H 10/20/20 12:23 Random Glucose 145 mg/dL (70-110) H 10/20/20 12:23 Lactic Acid, Venous 2.8 mmol/L (0.4-2.0) H* 10/20/20 12:23 Calcium 9.6 mg/dL (7.9-10.9) 10/20/20 12:23 Calcium Adj for Albumin 9.5 mg/dL (8.4-10.2) 10/20/20 12:23 Total Bilirubin 1.1 mg/dL (0.0-1.1) 10/20/20 12:23 AST 19 U/L (0-48) 10/20/20 12:23 ALT 27 U/L (19-67) 10/20/20 12:23 Alkaline Phosphatase 114 U/L (50-170) 10/20/20 12:23 Total Protein 7.2 gm/dL (6.2-8.2) 10/20/20 12:23 Albumin 3.7 gm/dl (3.4-5.0) 10/20/20 12:23 Urine Color Yellow 10/20/20 14:31 Urine Appearance Clear (CLEAR) 10/20/20 14:31 Urine pH 6.0 pH (5.0-7.0) 10/20/20 14:31 Ur Specific [place] >=1.030 SP.GR. (1.005-1.010) 10/20/20 14:31 Urine Protein 30 mg/dL (NEGATIVE) H 10/20/20 14:31 Urine Glucose (UA) Negative mg/dL (NEGATIVE) 10/20/20 14:31 Urine Ketones Negative mg/dL (NEGATIVE) 10/20/20 14:31 Urine Blood Negative /ul (NEGATIVE) 10/20/20 14:31 Urine Nitrate Negative (NEGATIVE) 10/20/20 14:31 Urine Bilirubin Negative mg/dl (NEGATIVE) 10/20/20 14:31 Urine Urobilinogen Normal EU/dl (NORMAL) 10/20/20 14:31 Ur Leukocyte Esterase Negative /ul (NEGATIVE) 10/20/20 14:31 Urine RBC Trace /hpf (0-5) 10/20/20 14:31 Urine WBC Trace /hpf (0-5) H 10/20/20 14:31 Ur Epithelial Cells Trace /hpf (0-5) 10/20/20 14:31 Urine Bacteria Trace (NONE) 10/20/20 14:31 Hyaline Casts 0-5 /LPF (NONE) H 10/20/20 14:31 Urine Mucus Trace (NONE) 10/20/20 14:31 Urine Culture Comments No culture indicated 10/20/20 14:31 SARS-CoV-2 (PCR) Not detected (NotDetected) 10/20/20 13:48 Assessment/Plan - Narrative Narrative: Naomi was admitted for severe weakness and found to have a leukocytosis of 35.1 up from 12.8 on 10/10/2020. She also had a elevated lactic acid. She does not fulfill the sepsis by the SOFA criteria although she fulfilled 2 or more of her systemic inflammatory response syndrome. Her chest x-ray and urinalysis findings which are unremarkable could be a reflection of her prior antibiotic suppression. Her WBC is elevated and could be due to the prednisone she got although we rarely see this high of a count accompanied by bandemia. She also had acute kidney injury with a creatinine bumping up to 0.98 from 0.65, 7 to 9 days ago. We will increase her IV fluids then settle her back down to 125mL/h. We will get a flat/upright plate of the abdomen. We will refer her to physical therapy for evaluation. We will continue her on IV Rocephin and await blood culture, urine and stool culture and C. difficile. - Assessment/Plan (1) Leukocytosis Problem: Acute (2) Acute kidney injury Problem: Acute (3) Lactic acidosis Problem: Acute (4) CAP (community acquired pneumonia) Problem: Acute Qualifiers: Laterality: unspecified laterality Qualified Code(s): J18.9 - Pneumonia, unspecified organism (5) UTI (urinary tract infection) Problem: Suspected Qualifiers: Urinary tract infection type: site unspecified Hematuria presence: without hematuria Qualified Code(s): N39.0 - Urinary tract infection, site not specified (6) HTN (hypertension) Problem: Chronic Qualifiers: Hypertension type: essential hypertension Qualified Code(s): I10 - Essential (primary) hypertension (7) HLD (hyperlipidemia) Problem: Chronic Qualifiers: Hyperlipidemia type: pure hypercholesterolemia Qualified Code(s): E78.00 - Pure hypercholesterolemia, unspecified (8) Idiopathic thrombocytopenia Problem: Chronic (9) Osteoarthritis Problem: Chronic Qualifiers: Osteoarthritis location: unspecified site Osteoarthritis type: primary Qualified Code(s): M19.91 - Primary osteoarthritis, unspecified site
[2020-10-20] MEDS ORDERED: METOPROLOL TARTRATE 1 MG/ML AMPUL IV ONE (16:50)
[2020-10-20] MEDS: NORMAL SALINE 1,000 ML IV PRN ×2 (17:10→22:48)
[2020-10-20] MEDS ORDERED: POTASSIUM CHLORIDE 20 MEQ TABLET.SA PO ONE (17:45)
[2020-10-20] MEDS ORDERED: ALBUTEROL SULFATE 2.5 MG/3 ML VIAL.NEB IH PRN (17:45)
[2020-10-20] MEDS ORDERED: COLCHICINE 0.6 MG TABLET PO SCH (17:45)
[2020-10-20] MEDS: ALBUTEROL SULFATE/IPRATROPIUM 3 ML NEBU IH SCH (18:04)
[2020-10-20] MEDS: ROSUVASTATIN CALCIUM 10 MG TABLET PO SCH (20:37)
[2020-10-20] MEDS: CALCIUM CARBONATE/VITAMIN D3 1 TAB TABLET PO SCH (20:37)
[2020-10-20] MEDS: LISINOPRIL 40 MG TABLET PO SCH (20:38)
[2020-10-21] MEDS ORDERED: PANTOPRAZOLE SODIUM 40 MG in NORMAL SALINE 100 ML IV SCH ×2 (03:30→09:00)
[2020-10-21] MEDS: PANTOPRAZOLE SODIUM 40 MG in NORMAL SALINE 100 ML IV SCH (05:19)
[2020-10-21] MEDS: ALBUTEROL SULFATE/IPRATROPIUM 3 ML NEBU IH SCH ×2 (06:06→20:15)
[2020-10-21 07:14] LABS: Hematocrit 40.8 % (37.0-47.0); Hemoglobin 13.2 gm/dL (12.5-16.0); Mean Cell Volume 84.5 fl (78-100); Mean Corpuscular Hemoglobin 27.3 pg (27-31); Mean Corpuscular Hgb Conc 32.4 g/dl (32-36); Mean Platelet Volume 12.5 fl (8-12.5); Neutrophil # 27.1 K/mm3 (1.3-6.0); Neutrophil % 82.4 % (42-75.0); Platelet Count 163 K/mm3 (150-450); Red Blood Count 4.83 M/mm3 (4.2-5.4); Red Cell Distribution Width 13.7 % (11.5-14.0); White Blood Count 32.9 K/mm3 (4.0-10.5)
[2020-10-21 07:18] LABS: Anion Gap 9.2 mmol/L (6.8-13.8); BUN/Creatinine Ratio 29.6 (9.0-21.6); Calcium * 8.6 mg/dL (7.9-10.9); Estimated Creat Clear 80.4; Potassium 3.2 mmol/L (3.4-4.6)
[2020-10-21 07:19] LABS: Total Cells Counted 100
[2020-10-21] MEDS: LEVOTHYROXINE SODIUM 75 MCG TABLET PO SCH (07:25)
[2020-10-21 07:26] LABS: CRP 20.5 mg/dL (0.0-0.9)
[2020-10-21] MEDS: NORMAL SALINE 1,000 ML IV PRN ×2 (07:27→19:29)
[2020-10-21 07:42] LABS: Band 2 % (0-2.0); Lymphocyte 5 % (20-51); Monocyte 7 % (0-9); Neutrophil 86 % (42-75); Neutrophil # 28.3 K/mm3 (1.3-6.0); Platelet Estimate Normal (NORMAL); RBC Morphology Normal (NORMAL)
[2020-10-21] MEDS ORDERED: LISINOPRIL 40 MG TABLET PO SCH (09:00)
--- NOTE | 2020-10-21 09:46 | PN ---
Subjective - Date and Time Seen Date: 10/21/20 Time: 09:34 Subjective Narrative: Naomi is still complaining of severe weakness and abdominal pain. Last night the patient had maroonish liquid stool that was positive for occult blood. She is afebrile. Objective - Review of Systems Generalized/Overall Review: Reports: Weakness, Chills. Denies: Fever EENTM: Denies: Blurred Vision Respiratory: Denies: Cough, Shortness of Breath, Orthopnea, Wheezing Cardiac: Denies: Chest Pain, Edema, Palpitations Abdominal: Reports: Abdominal Pain, Other - Maroonish stool. Denies: Nausea, Vomiting, Hematemesis Genitourinary Symptoms: Reports: Urgency, Frequency. Denies: Itching Neurological: Denies: Headache Skin: Denies: Lesions, Rash Misc: All systems neg except as marked - Vitals Vitals: Last Vital Signs Temp 36.7 C 10/21/20 06:00 Pulse 93 10/21/20 06:14 Resp 20 10/21/20 06:14 BP 167/73 H 10/21/20 06:00 Pulse Ox 95 10/21/20 06:06 - Abnormal Lab Findings Abnormal Lab Findings: Abnormal Lab Results 10/20/20 10/20/20 10/20/20 Range/Units 12:23 12:23 12:23 WBC 35.1 H (4.0-10.5) K/mm3 RBC 5.43 H (4.2-5.4) M/mm3 Immature Gran % (Auto) (0.001-0.429) % Immature Gran # (Auto) (0.000-0.0310) K/mm3 Neutrophils % (42-75.0) % Neutrophils % (Manual) 85 H (42-75) % Lymphocytes % (20-51) % Lymphocytes % (Manual) 6 L (20-51) % Monocytes % (0.0-9) % Neutrophils # (1.3-6.0) K/mm3 Neutrophils # (Manual) 29.8 H (1.3-6.0) K/mm3 Monocytes # (0.0-1.0) k/mm3 Monocytes # (Manual) 3.2 H (0.0-1.0) k/mm3 ESR (0-15) mm/hr Potassium 3.2 L (3.4-4.6) mmol/L Anion Gap 14.1 H (6.8-13.8) mmol/L BUN 30 H D (3-23) mg/dL Est GFR (Non-Af Amer) 58 L D (60-130) mL/min BUN/Creatinine Ratio 30.6 H (9.0-21.6) Random Glucose 145 H (70-110) mg/dL Lactic Acid, Venous 2.8 H* (0.4-2.0) mmol/L C-Reactive Prot, Quant (0.0-0.9) mg/dL Urine Protein (NEGATIVE) mg/dL Urine WBC (0-5) /hpf Hyaline Casts (NONE) /LPF Stool Occult Blood 10/20/20 10/20/20 10/21/20 Range/Units 14:31 15:54 02:30 WBC (4.0-10.5) K/mm3 RBC (4.2-5.4) M/mm3 Immature Gran % (Auto) (0.001-0.429) % Immature Gran # (Auto) (0.000-0.0310) K/mm3 Neutrophils % (42-75.0) % Neutrophils % (Manual) (42-75) % Lymphocytes % (20-51) % Lymphocytes % (Manual) (20-51) % Monocytes % (0.0-9) % Neutrophils # (1.3-6.0) K/mm3 Neutrophils # (Manual) (1.3-6.0) K/mm3 Monocytes # (0.0-1.0) k/mm3 Monocytes # (Manual) (0.0-1.0) k/mm3 ESR (0-15) mm/hr Potassium (3.4-4.6) mmol/L Anion Gap (6.8-13.8) mmol/L BUN (3-23) mg/dL Est GFR (Non-Af Amer) (60-130) mL/min BUN/Creatinine Ratio (9.0-21.6) Random Glucose (70-110) mg/dL Lactic Acid, Venous 3.0 H* (0.4-2.0) mmol/L C-Reactive Prot, Quant (0.0-0.9) mg/dL Urine Protein 30 H (NEGATIVE) mg/dL Urine WBC Trace H (0-5) /hpf Hyaline Casts 0-5 H (NONE) /LPF Stool Occult Blood Positive H 10/21/20 10/21/20 10/21/20 Range/Units 06:45 06:45 06:45 WBC 32.9 H (4.0-10.5) K/mm3 RBC (4.2-5.4) M/mm3 Immature Gran % (Auto) 0.80 H (0.001-0.429) % Immature Gran # (Auto) 0.27 H (0.000-0.0310) K/mm3 Neutrophils % 82.4 H (42-75.0) % Neutrophils % (Manual) 86 H (42-75) % Lymphocytes % 6.7 L (20-51) % Lymphocytes % (Manual) 5 L (20-51) % Monocytes % 9.9 H (0.0-9) % Neutrophils # 27.1 H (1.3-6.0) K/mm3 Neutrophils # (Manual) 28.3 H (1.3-6.0) K/mm3 Monocytes # 3.2 H (0.0-1.0) k/mm3 Monocytes # (Manual) 2.3 H (0.0-1.0) k/mm3 ESR 19 H (0-15) mm/hr Potassium 3.2 L (3.4-4.6) mmol/L Anion Gap (6.8-13.8) mmol/L BUN (3-23) mg/dL Est GFR (Non-Af Amer) (60-130) mL/min BUN/Creatinine Ratio 29.6 H (9.0-21.6) Random Glucose 146 H (70-110) mg/dL Lactic Acid, Venous (0.4-2.0) mmol/L C-Reactive Prot, Quant 20.5 H (0.0-0.9) mg/dL Urine Protein (NEGATIVE) mg/dL Urine WBC (0-5) /hpf Hyaline Casts (NONE) /LPF Stool Occult Blood - Exam Constitutional: Present: Alert, Oriented x3, Cooperative ENT Exam: Present: hearing grossly normal Neck: Present: supple. Absent: lymphadenopathy (R), lymphadenopathy (L) Respiratory: Present: normal breath sounds, No rales, No wheezing Cardiovascular/Chest: Present: regular rate, rhythm, no JVD, no murmur Abdomen: Present: Normal bowel sounds, soft, tender - Slightly tender left lower quadrant Extremity: Present: no calf tenderness. Absent: lower extremity edema Assessment/Plan Plan Narrative: Naomi was admitted for severe weakness and lactic acidosis. She also complained of abdominal pain yesterday and a flat and upright did not show any dilated bowel loops or signs of obstruction. Last night the patient had maroonish liquid stool that was described as look like bloody by night nurse. Stool for occult blood was positive. Concomitant colitis as a possible source of her leukocytosis was entertained. This morning the patient is still complaining of severe weakness and she does have abdominal pain in the left lower quadrant. Her lactic acid is back to normal. Her lactic dehydrogenase, total CK were normal and therefore unlikely ischemic colitis going to infarction. She did have community-acquired pneumonia and UTI with E. coli 5 to 6 days before her admission and was on Levaquin for it-her C. difficile was negative. Her stool culture is also negative. IBD panel is pending. It is still possible that she could have infectious versus inflammatory colitis and we will get a CT scan of her abdomen and pelvis with contrast. Pending results most likely we will get a surgical consult pinned. We will continue with IV fluids and IV Rocephin and I have added metronidazole last night. Her white blood cell count is down to 32.9 from 35.1. - Problems/Diagnosis (1) GIB (gastrointestinal bleeding) Problem: Acute Narrative: LGIB more than UGIB. (2) Leukocytosis Problem: Acute (3) Acute kidney injury Problem: Resolved (4) Lactic acidosis Problem: Resolved (5) CAP (community acquired pneumonia) Problem: Acute Qualifiers: Laterality: unspecified laterality Qualified Code(s): J18.9 - Pneumonia, unspecified organism (6) UTI (urinary tract infection) Problem: Acute Qualifiers: Urinary tract infection type: site unspecified Hematuria presence: without hematuria Qualified Code(s): N39.0 - Urinary tract infection, site not specified (7) HTN (hypertension) Problem: Chronic Qualifiers: Hypertension type: essential hypertension Qualified Code(s): I10 - Essential (primary) hypertension (8) HLD (hyperlipidemia) Problem: Chronic Qualifiers: Hyperlipidemia type: pure hypercholesterolemia Qualified Code(s): E78.00 - Pure hypercholesterolemia, unspecified (9) Idiopathic thrombocytopenia Problem: Chronic (10) Osteoarthritis Problem: Chronic Qualifiers: Osteoarthritis location: unspecified site Osteoarthritis type: primary Qualified Code(s): M19.91 - Primary osteoarthritis, unspecified site
[2020-10-21] MEDS ORDERED: DIATRIZOATE MEGLUMINE, SODIUM 30 ML BTL PO ONE (10:39)
[2020-10-21] MEDS: CALCIUM CARBONATE/VITAMIN D3 1 TAB TABLET PO SCH ×2 (10:40→20:01)
[2020-10-21] MEDS: metroNIDAZOLE/SODIUM CHLORIDE 500 MG/100 ML BAG IV SCH ×2 (10:48→17:14)
[2020-10-21] MEDS: LISINOPRIL 40 MG TABLET PO SCH ×2 (10:48→20:01)
[2020-10-21] MEDS: ONDANSETRON HCL/PF 2 MG/ML VIAL IV PRN ×2 (11:49→23:50)
[2020-10-21] MEDS: ACETAMINOPHEN 325 MG TABLET PO PRN (19:29)
[2020-10-21] MEDS: ROSUVASTATIN CALCIUM 10 MG TABLET PO SCH (20:01)
--- NOTE | 2020-10-21 20:17 | CONS ---
HPI - General Date of Service: 10/21/20 Source: patient, family, RN/MD, RN notes reviewed, old records Exam Limitations: clinical condition, other - Somewhat lethargic - History of Present Illness Timing/Duration: other - She originally presented to the emergency room on 10/07/2020 complaining of some right back pain. She has been taking a lot of Advil apparently according to the family. She came back in on 10/10/2020 with shortness of breath. Sent home on antibiotics. Return 10/20/2020 with diarrhea Severity: severe Modifying Factors - (Worsens): Reports: movement Modifying Factors - (Improves): Reports: rest Associated Symptoms: other - Loose bowel movements. Abdominal discomfort Allergies/Adverse Reactions: Allergies camphor [From Vicks Vaporub] Allergy (Verified 10/20/20 16:24) Itching eucalyptus [From Vicks Vaporub] Allergy (Verified 10/20/20 16:24) Itching menthol [From Vicks Vaporub] Allergy (Verified 10/20/20 16:24) Itching petrolatum,white [From Vicks Vaporub] Allergy (Verified 10/20/20 16:24) Itching turpentine oil [From Vicks Vaporub] Allergy (Verified 10/20/20 16:24) Itching poison oak extract [Poison [place] Extract] Adverse Reaction (Mild, Verified 10/20/20 16:24) rash sulfamethoxazole [From Bactrim DS] Adverse Reaction (Mild, Verified 10/20/20 16:24) Itching trimethoprim [From Bactrim DS] Adverse Reaction (Mild, Verified 10/20/20 16:24) Itching Home Medications: Home Medications Medication Instructions Recorded Last Taken Calcium Carbonate/Vitamin D3 1 tab PO BID 09/25/14 Unknown [Calcium 600 + Vit D 400 Tablet] ipratropium 0.5 mg-albuterol 3 mg 3 ml IH BID #90 ml 12/31/18 Unknown (2.5 mg base)/3 mL nebulization soln vit C 250 mg-vit E 90 mg-zinc 40 1 tab PO BID 02/05/19 Unknown mg-copper 1 [id number] capsule Ibuprofen 400 mg PO PRN PRN 02/16/19 Unknown Naproxen [Naprosyn] 500 mg PO BID #13 tab 02/17/19 Unknown lisinopril 20 mg tablet 40 mg PO DAILY 05/08/19 Unknown tramadol 50 mg tablet 50 mg PO TID PRN #45 tab 11/06/19 Unknown albuterol sulfate 90 mcg/actuation 2 puff IH Q4H PRN #18 g 03/26/20 Unknown aerosol inhaler atorvastatin 20 mg tablet 20 mg PO DAILY #90 tab 07/02/20 Unknown levothyroxine 75 mcg tablet 75 mcg PO DAILY #90 tab 07/02/20 Unknown Colchicine [Colcrys] 0.6 mg PO prn 10/07/20 Unknown Cyclobenzaprine HCl [Flexeril] 10 mg PO TID PRN #20 tab 10/07/20 Unknown Vit A/Vit C/Vit E/Zinc/Copper 2 ea PO DAILY 10/07/20 Unknown [Preservision Areds Tablet] bumetanide 2 mg tablet 2 mg PO DAILY #30 tab 10/13/20 Unknown levofloxacin 500 mg tablet 500 mg PO DAILY 10 Days #10 tab 10/13/20 Unknown Procedures ASSIST VAG HYSTER(LAVH) (05/25/09) Administration of zkhymmqnib-ywntaqc-djfawfdrr, combined (04/22/11) Application of splint (04/22/11) Colonoscopy (08/16/10) D & C NEC (03/23/09) Injection of anesthetic into spinal canal for analgesia (03/04/11) Injection of other agent into spinal canal (03/04/11) Injection of steroid (03/04/11) LAPAROSCOP REMOVE OVARIES/TUBES (05/25/09) Other x-ray of lumbosacral spine (03/04/11) Reposition Right Upper Femur with Intramedullary Internal Fixation Device, Percutaneous Approach (11/04/15) Total knee replacement (10/06/14) Medications - Medications Current Medications: Current Medications Acetaminophen (Acetaminophen 325 Mg Tablet) 650 mg PO Q6H PRN PRN Reason: Mild pain (pain scale 1-3) Stop: 11/20/20 19:10 Last Admin: 10/21/20 19:29 Dose: 650 mg Documented by: Albuterol Sulfate (Albuterol Sulfate 2.5 Mg/3 Ml Vial.Neb) 2.5 mg IH Q4H PRN PRN Reason: Shortness Of Breath Stop: 11/19/20 17:46 Last Admin: 10/20/20 22:34 Dose: 2.5 mg Documented by: Albuterol/Ipratropium (Albuterol Sulfate/Ipratropium 3 Ml Nebu) 3 ml IH BIDRT [facility] Stop: 11/19/20 19:01 Last Admin: 10/21/20 06:06 Dose: 3 ml Documented by: Calcium/Vitamin D (Calcium Carbonate/Vitamin D3 1 Tab Tablet) 1 tab PO BID [facility] Stop: 11/19/20 21:01 Last Admin: 10/21/20 20:01 Dose: 1 tab Documented by: Sodium Chloride (Sodium Chloride 0.9%) 1,000 mls @ 150 mls/hr IV .Q6H40M PRN PRN Reason: HYDRATION Stop: 11/19/20 16:46 Last Infusion: 10/21/20 19:57 Dose: 150 mls/hr Documented by: Metronidazole (Flagyl) 500 mg in 100 mls @ 100 mls/hr IV Q8H [facility]; Protocol Stop: 11/20/20 09:01 Last Infusion: 10/21/20 18:38 Dose: Infused Documented by: Pantoprazole Sodium 40 mg/ (Sodium Chloride) 100 mls @ 400 mls/hr IV Q24H [facility] Stop: 11/20/20 05:01 Last Infusion: 10/21/20 05:53 Dose: Infused Documented by: Ceftriaxone Sodium 1,000 mg/ (Dextrose/Water) 100 mls @ 200 mls/hr IV Q24H [facility]; Protocol Stop: 11/20/20 15:01 Last Infusion: 10/21/20 18:38 Dose: Infused Documented by: Levothyroxine Sodium (Levothyroxine Sodium 75 Mcg Tablet) 75 mcg PO DAILY@0700 [facility] Stop: 11/20/20 07:01 Last Admin: 10/21/20 07:25 Dose: 75 mcg Documented by: Lisinopril (Lisinopril 40 Mg Tablet) 40 mg PO BID [facility] Stop: 11/19/20 21:01 Last Admin: 10/21/20 20:01 Dose: 40 mg Documented by: Ondansetron HCl (Ondansetron Hcl/Pf 2 Mg/Ml Vial) 4 mg IV Q6H PRN PRN Reason: Nausea And Vomiting Stop: 11/20/20 11:14 Last Admin: 10/21/20 11:49 Dose: 4 mg Documented by: Rosuvastatin Calcium (Rosuvastatin Calcium 10 Mg Tablet) 20 mg PO [facility] Stop: 11/19/20 21:01 Last Admin: 10/21/20 20:01 Dose: 20 mg Documented by: Review of Systems - Review of Systems Narrative: She is very lethargic. She will answer some questions. She does not feel short of breath. She denies chest pain. She does state that her abdomen hurts some both with exam and also with cough. Generalized/Overall Review: Present: Weakness, Fever EENTM: Present: No Symptoms Reported, Other - Dry mouth Respiratory: Present: Other - She has not had a productive cough. She has underlying COPD. More short of breath the last week or so Cardiac: Absent: Chest Pain, Palpitations Abdominal: Present: Abdominal Pain - Off and on laying still. More with exam. Genitourinary: Present: No Symptoms Reported, Other - Her urine culture was positive for E. coli Musculoskeletal: Present: Joint Pain - Right hip chronic, Back Pain - Chronic Neurological: Present: Other - Very drowsy. Nonfocal Skin: Present: Dryness Physical Examination - Exam Vital Signs: Vital Signs - Last Taken Temp 38.2 C H 10/21/20 18:29 Pulse 94 10/21/20 20:01 Resp 32 H 10/21/20 18:29 BP 130/67 10/21/20 20:01 Pulse Ox 100 10/21/20 18:29 O2 Oxygen Delivery Method Room Air Constitutional: Present: Oriented x3, Lethargic, Elderly ENT Exam: Present: normal ENT inspection, other - Dry mucous membranes Eye Exam: bilateral eye: normal inspection Neck: Present: normal inspection Respiratory: Present: normal breath sounds - Some crackles in the right base Cardiovascular/Chest: Present: regular rate, rhythm Abdomen: Present: other - Her abdomen is soft. No bowel sounds. She is tympanic to percussion. She has some percussion tenderness and reports direct tenderness in the mid abdomen and may be more on the left side. No guarding Extremity: Present: normal inspection Skin Exam: Present: warm/dry, other - Her axilla is moist Neurologic: Present: no motor/sensory deficits Appearance: Present: other - Very drowsy Eye contact: Present: other - Does not make eye contact Thoughts: Present: normal thought pattern - Results and Findings: Lab/Microbiology results last 24 hrs: Abnormal/Pending Laboratory Last 24 HRS 10/21/20 10/21/20 10/21/20 06:45 06:45 06:45 WBC 32.9 H Immature Gran % (Auto) 0.80 H Immature Gran # (Auto) 0.27 H Neutrophils % 82.4 H Neutrophils % (Manual) 86 H Lymphocytes % 6.7 L Lymphocytes % (Manual) 5 L Monocytes % 9.9 H Neutrophils # 27.1 H Neutrophils # (Manual) 28.3 H Monocytes # 3.2 H Monocytes # (Manual) 2.3 H ESR 19 H Potassium 3.2 L BUN/Creatinine Ratio 29.6 H Random Glucose 146 H C-Reactive Prot, Quant 20.5 H Stool Occult Blood 10/21/20 02:30 WBC Immature Gran % (Auto) Immature Gran # (Auto) Neutrophils % Neutrophils % (Manual) Lymphocytes % Lymphocytes % (Manual) Monocytes % Neutrophils # Neutrophils # (Manual) Monocytes # Monocytes # (Manual) ESR Potassium BUN/Creatinine Ratio Random Glucose C-Reactive Prot, Quant Stool Occult Blood Positive H Culture 10/20/20 13:10 Blood Culture - Preliminary Blood NO GROWTH 24 HOURS 10/20/20 12:23 Blood Culture - Preliminary Blood NO GROWTH 24 HOURS 10/20/20 12:52 Stool Culture - Preliminary Stool No Pathogens Isolated - Assessments/Findings (1) CAP (community acquired pneumonia) Diagnosis(s): There is consolidation in the right base on CT scan. She is currently on Rocephin Problem: Acute Qualifiers: Laterality: unspecified laterality Qualified Code(s): J18.9 - Pneumonia, unspecified organism (2) GIB (gastrointestinal bleeding) Diagnosis(s): Her hemoglobin has not decreased appreciably since admission. She normally runs in the 13 g range. 14.8 on admission was probably hemoconcentrated for her. The white blood cell count of 35,000 could be a sign of ischemia, however the CT scan does not show thickening in the colon to suggest either ischemic or infectious colitis. There is significant atherosclerotic disease but flow was demonstrated in all the enteric vessels. The C. difficile test and stool for pathogens were negative. Do not feel that endoscopy will add much. She is currently on Rocephin and Flagyl which would cover bowel pathogens as well as pneumonia and urinary tract infection. She has had no p.o. intake today other than the CT contrast. She appears dehydrated. Would advise increasing the IV rate. Discussed with Dr. Ruiz and I will see the patient again in the morning. Problem: Acute (3) Leukocytosis Diagnosis(s): The marked elevation of WBCs could suggest colonic ischemia however there is no bowel thickening on CT. Her white blood cell count has decreased since admission and her lactic acid has normalized. She is currently on good antibiotic coverage. Would increase IV fluids and recheck lab tomorrow Problem: Acute (4) UTI (urinary tract infection), bacterial Problem: Acute
[2020-10-22] MEDS: metroNIDAZOLE/SODIUM CHLORIDE 500 MG/100 ML BAG IV SCH ×3 (00:02→17:46)
[2020-10-22] MEDS: traMADol HCL 50 MG TABLET PO PRN ×3 (01:03→20:25)
[2020-10-22] MEDS: NORMAL SALINE 1,000 ML IV PRN ×3 (03:17→20:32)
[2020-10-22] MEDS: PANTOPRAZOLE SODIUM 40 MG in NORMAL SALINE 100 ML IV SCH (04:33)
[2020-10-22] MEDS: ACETAMINOPHEN 325 MG TABLET PO PRN ×3 (04:36→23:54)
[2020-10-22] MEDS: ALBUTEROL SULFATE/IPRATROPIUM 3 ML NEBU IH SCH ×2 (06:00→18:03)
[2020-10-22 06:52] LABS: Hematocrit 37.2 % (37.0-47.0); Hemoglobin 12.1 gm/dL (12.5-16.0); Mean Cell Volume 84.9 fl (78-100); Mean Corpuscular Hemoglobin 27.6 pg (27-31); Mean Corpuscular Hgb Conc 32.5 g/dl (32-36); Platelet Count 117 K/mm3 (150-450); Red Blood Count 4.38 M/mm3 (4.2-5.4); Red Cell Distribution Width 13.5 % (11.5-14.0); White Blood Count 31.8 K/mm3 (4.0-10.5)
[2020-10-22 06:55] LABS: Anion Gap 10.4 mmol/L (6.8-13.8); BUN/Creatinine Ratio 13.8 (9.0-21.6); Calcium * 8.3 mg/dL (7.9-10.9); Carbon Dioxide 27.5 mmol/L (24-32.6); Estimated Creat Clear 74.8; Potassium 2.9 mmol/L (3.4-4.6)
[2020-10-22 06:59] LABS: Total Cells Counted 100
[2020-10-22] MEDS: LEVOTHYROXINE SODIUM 75 MCG TABLET PO SCH (07:25)
[2020-10-22 07:30] LABS: Band 2 % (0-2.0); Lymphocyte 3 % (20-51); Monocyte 5 % (0-9); Neutrophil 90 % (42-75); Neutrophil # 28.6 K/mm3 (1.3-6.0); Platelet Estimate Normal (NORMAL); RBC Morphology Normal (NORMAL)
[2020-10-22] MEDS ORDERED: POTASSIUM CHLORIDE 10 MEQ TABLET.SA PO ONE (09:08)
--- NOTE | 2020-10-22 09:10 | PN ---
Subjective - Date and Time Seen Date: 10/22/20 Time: 09:09 Subjective Narrative: Patient is awake alert oriented x3. She is not drowsy and lethargic like last night. Objective - Review of Systems Generalized/Overall Review: Reports: Weakness, Fever. Denies: Chills EENTM: Denies: Blurred Vision Respiratory: Denies: Cough, Shortness of Breath, Orthopnea Cardiac: Denies: Chest Pain, Edema, Palpitations Abdominal: Reports: Abdominal Pain, Other - positve BM with blood x 2 per nurse. Denies: Nausea, Vomiting Genitourinary Symptoms: Denies: Urgency, Frequency Musculoskeletal Complaints: Reports: Joint Pain, Back Pain Neurological: Denies: Headache Skin: Denies: Lesions, Rash Misc: All systems neg except as marked - Vitals Vitals: Last Vital Signs Temp 36.7 C 10/22/20 06:33 Pulse 84 10/22/20 06:33 Resp 18 10/22/20 06:33 BP 147/57 10/22/20 06:33 Pulse Ox 98 10/22/20 06:33 - Abnormal Lab Findings Abnormal Lab Findings: Abnormal Lab Results 10/22/20 10/22/20 Range/Units 06:46 06:46 WBC 31.8 H (4.0-10.5) K/mm3 Hgb 12.1 L (12.5-16.0) gm/dL Plt Count 117 L (150-450) K/mm3 Neutrophils % (Manual) 90 H (42-75) % Lymphocytes % (Manual) 3 L (20-51) % Neutrophils # (Manual) 28.6 H (1.3-6.0) K/mm3 Lymphocytes # (Manual) 1.0 L (1.5-3.5) k/mm3 Monocytes # (Manual) 1.6 H (0.0-1.0) k/mm3 Potassium 2.9 L (3.4-4.6) mmol/L Random Glucose 137 H (70-110) mg/dL - Exam Constitutional: Present: Alert, Oriented x3, Cooperative Neck: Present: supple. Absent: lymphadenopathy (R), lymphadenopathy (L) Respiratory: Present: decreased breath sounds, No rales, No wheezing Cardiovascular/Chest: Present: regular rate, rhythm, no JVD, no murmur Abdomen: Present: Normal bowel sounds, soft, tender - mild, distended - mild. Absent: rebound tenderness Extremity: Present: no calf tenderness, pedal edema Assessment/Plan Plan Narrative: Naomi was admitted for severe weakness and lactic acidosis. She is feeling much better this morning but still weak and no energy at all. She had 2 bloody bowel movements last night per nurse. She says she had a large bowel movement that was runny on the morning of admission and passed out. Her CT scan did not show any thickening of the bowel lewis but showed only nonspecific enteritis. 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 Since her culture and C. difficile were negative it is unlikely infectious although still a possibility. IBD panel is still pending. It is possible that when she had a vasovagal syncopal attack, her blood pressure dropped down causing low flow to her mesenteric artery leading to decreased flow or low-flow ischemia transiently causing lactic acidosis which has gotten back to normal. The process was halted early with IV fluids and so there might not be enough thickening of the wall on CT scan. Her LDH and CK are normal and therefor unlikely any conversion to infarction. I am still not sure with the actual cause of her leukocytosis/weakness . Her elevated WBC count could be due to her history of UTI and pneumonia having failed outpatient treatment or could be due to a GIT etiology-enterocolitisinfectious versus inflammatory versus ischemia. Her WBC count is slow to go down but at least it is trending down. We will continue her on bowel rest, IV fluids, and IV antibiotics that is covering possible CAP, UTI and GIT etiology of her leukocytosis. Her Hb is down to 12.1 . We will replenish her K. Will continue to monitor. . Dr. Loving is on the case as well. - Problems/Diagnosis (1) Hypokalemia Problem: Acute (2) GIB (gastrointestinal bleeding) Problem: Acute (3) Leukocytosis Problem: Acute (4) Acute kidney injury Problem: Resolved (5) Lactic acidosis Problem: Resolved (6) CAP (community acquired pneumonia) Problem: Acute Qualifiers: Laterality: unspecified laterality Qualified Code(s): J18.9 - Pneumonia, unspecified organism (7) UTI (urinary tract infection) Problem: Acute Qualifiers: Urinary tract infection type: site unspecified Hematuria presence: without hematuria Qualified Code(s): N39.0 - Urinary tract infection, site not specified (8) HTN (hypertension) Problem: Chronic Qualifiers: Hypertension type: essential hypertension Qualified Code(s): I10 - Essential (primary) hypertension (9) HLD (hyperlipidemia) Problem: Chronic Qualifiers: Hyperlipidemia type: pure hypercholesterolemia Qualified Code(s): E78.00 - Pure hypercholesterolemia, unspecified (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
[2020-10-22] MEDS: LISINOPRIL 40 MG TABLET PO SCH ×2 (09:53→20:31)
[2020-10-22] MEDS: CALCIUM CARBONATE/VITAMIN D3 1 TAB TABLET PO SCH ×2 (09:53→20:31)
[2020-10-22] MEDS: POTASSIUM CHLORIDE IN WATER 100 ML IV SCH ×2 (11:24→12:26)
[2020-10-22] MEDS: ROSUVASTATIN CALCIUM 10 MG TABLET PO SCH (20:31)
[2020-10-23] MEDS: metroNIDAZOLE/SODIUM CHLORIDE 500 MG/100 ML BAG IV SCH ×3 (00:02→18:01)
[2020-10-23] MEDS: PANTOPRAZOLE SODIUM 40 MG in NORMAL SALINE 100 ML IV SCH (04:39)
[2020-10-23] MEDS: NORMAL SALINE 1,000 ML IV PRN ×2 (05:11→13:42)
[2020-10-23] MEDS: ALBUTEROL SULFATE/IPRATROPIUM 3 ML NEBU IH SCH ×2 (06:07→18:10)
[2020-10-23] MEDS: LEVOTHYROXINE SODIUM 75 MCG TABLET PO SCH (06:33)
[2020-10-23 06:37] LABS: Hematocrit 38.1 % (37.0-47.0); Hemoglobin 12.4 gm/dL (12.5-16.0); Mean Cell Volume 84.3 fl (78-100); Mean Corpuscular Hemoglobin 27.4 pg (27-31); Mean Corpuscular Hgb Conc 32.5 g/dl (32-36); Mean Platelet Volume 11.9 fl (8-12.5); Platelet Count 111 K/mm3 (150-450); Red Blood Count 4.52 M/mm3 (4.2-5.4); Red Cell Distribution Width 13.3 % (11.5-14.0); White Blood Count 24.4 K/mm3 (4.0-10.5)
[2020-10-23 06:40] LABS: Total Cells Counted 100
[2020-10-23 06:43] LABS: Anion Gap 7.5 mmol/L (6.8-13.8); Carbon Dioxide 29.5 mmol/L (24-32.6); Estimated Creat Clear 76.1
[2020-10-23 07:03] LABS: Band 5 % (0-2.0); Lymphocyte 2 % (20-51); Monocyte 4 % (0-9); Neutrophil 89 % (42-75); Neutrophil # 21.7 K/mm3 (1.3-6.0); Platelet Estimate Normal (NORMAL); RBC Morphology Normal (NORMAL)
--- NOTE | 2020-10-23 08:34 | PN ---
Subjective - Date and Time Seen Date: 10/23/20 Time: 08:30 Subjective Narrative: Still feels weak and still has abdominal pain.afebrile for the last 2 days. WBC down to 24. Objective - Review of Systems Generalized/Overall Review: Reports: Weakness. Denies: Chills EENTM: Denies: Blurred Vision Respiratory: Denies: Cough, Shortness of Breath, Orthopnea Cardiac: Reports: Edema. Denies: Chest Pain, Palpitations Abdominal: Reports: Abdominal Pain. Denies: Nausea, Vomiting Genitourinary Symptoms: Denies: Urgency, Frequency Musculoskeletal Complaints: Reports: Joint Pain Neurological: Denies: Headache Skin: Denies: Lesions, Rash - Vitals Vitals: Last Vital Signs Temp 36.8 C 10/23/20 06:00 Pulse 85 10/23/20 06:17 Resp 18 10/23/20 06:17 BP 172/75 H 10/23/20 06:00 Pulse Ox 90 L 10/23/20 06:07 - Abnormal Lab Findings Abnormal Lab Findings: Abnormal Lab Results 10/23/20 10/23/20 Range/Units 06:30 06:30 WBC 24.4 H D (4.0-10.5) K/mm3 Hgb 12.4 L (12.5-16.0) gm/dL Plt Count 111 L (150-450) K/mm3 Neutrophils % (Manual) 89 H (42-75) % Band Neuts % (Manual) 5 H (0-2.0) % Lymphocytes % (Manual) 2 L (20-51) % Neutrophils # (Manual) 21.7 H (1.3-6.0) K/mm3 Lymphocytes # (Manual) 0.5 L (1.5-3.5) k/mm3 Potassium 3.0 L (3.4-4.6) mmol/L - Exam Constitutional: Present: Alert, Oriented x3, Cooperative ENT Exam: Present: hearing grossly normal Neck: Present: supple. Absent: lymphadenopathy (R), lymphadenopathy (L) Respiratory: Present: decreased breath sounds, No rales, No wheezing Cardiovascular/Chest: Present: regular rate, rhythm, no JVD, no murmur Abdomen: Present: Normal bowel sounds, soft, tender, distended - slightly Extremity: Present: no calf tenderness, pedal edema Assessment/Plan Plan Narrative: Naomi was admitted for severe weakness, leukocytosis of 35.5 and lactic acidosis having failed outpatient antibiotic treatment. She also had abdominal pain and had maroonish liquid stool on the medical floor. 7 days prior to admission she was being treated for E. coli UTI and pneumonia with Levaquin. Suspecting enterocolitisinfectious versus inflammatory versus ischemic -as a possible cause of her leukocytosis we did a CT scan of her abdomen and pelvis which showed nonspecific enteritis.. Dr. Loving was consulted. She is still complaining of abdominal pain and weakness. She is day 4 for now of IV Rocephin and day 3 of IV metronidazole. We will continue with her IV antibiotics, bowel rest, and IV fluids over the weekend. Her white blood cell count is down now to 24. Will give her 40 meq KCl PO BID for today. - Problems/Diagnosis (1) Hypokalemia Problem: Acute (2) GIB (gastrointestinal bleeding) Problem: Acute (3) Leukocytosis Problem: Acute (4) Acute kidney injury Problem: Resolved (5) Lactic acidosis Problem: Resolved (6) CAP (community acquired pneumonia) Problem: Acute Qualifiers: Laterality: unspecified laterality Qualified Code(s): J18.9 - Pneumonia, unspecified organism (7) UTI (urinary tract infection) Problem: Acute Qualifiers: Urinary tract infection type: site unspecified Hematuria presence: without hematuria Qualified Code(s): N39.0 - Urinary tract infection, site not specified (8) HTN (hypertension) Problem: Chronic Qualifiers: Hypertension type: essential hypertension Qualified Code(s): I10 - Essential (primary) hypertension (9) HLD (hyperlipidemia) Problem: Chronic Qualifiers: Hyperlipidemia type: pure hypercholesterolemia Qualified Code(s): E78.00 - Pure hypercholesterolemia, unspecified (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
[2020-10-23] MEDS: CALCIUM CARBONATE/VITAMIN D3 1 TAB TABLET PO SCH ×2 (09:00→21:22)
[2020-10-23] MEDS: LISINOPRIL 40 MG TABLET PO SCH ×2 (09:00→21:22)
[2020-10-23] MEDS: POTASSIUM CHLORIDE 10 MEQ TABLET.SA PO SCH ×2 (09:01→18:02)
[2020-10-23] MEDS: ACETAMINOPHEN 325 MG TABLET PO PRN ×2 (10:55→19:23)
[2020-10-23 15:36] LABS: P-ANCA Titer DNR titer (<1:20)
[2020-10-23] MEDS: traMADol HCL 50 MG TABLET PO PRN (16:31)
[2020-10-23] MEDS: ROSUVASTATIN CALCIUM 10 MG TABLET PO SCH (21:22)
[2020-10-24] MEDS: traMADol HCL 50 MG TABLET PO PRN ×2 (00:18→10:24)
[2020-10-24] MEDS: metroNIDAZOLE/SODIUM CHLORIDE 500 MG/100 ML BAG IV SCH ×3 (00:20→16:39)
[2020-10-24] MEDS: NORMAL SALINE 1,000 ML IV PRN ×2 (03:42→15:55)
[2020-10-24] MEDS: ONDANSETRON HCL/PF 2 MG/ML VIAL IV PRN (04:18)
[2020-10-24] MEDS: PANTOPRAZOLE SODIUM 40 MG in NORMAL SALINE 100 ML IV SCH (05:22)
[2020-10-24] MEDS: ALBUTEROL SULFATE/IPRATROPIUM 3 ML NEBU IH SCH ×2 (06:03→18:41)
[2020-10-24 06:53] LABS: Hemoglobin 13.3 gm/dL (12.5-16.0); Mean Corpuscular Hemoglobin 27.3 pg (27-31); Mean Corpuscular Hgb Conc 32.4 g/dl (32-36); Platelet Count 134 K/mm3 (150-450); Red Blood Count 4.88 M/mm3 (4.2-5.4); Red Cell Distribution Width 13.2 % (11.5-14.0); White Blood Count 22.2 K/mm3 (4.0-10.5)
[2020-10-24 06:59] LABS: Total Cells Counted 100
[2020-10-24 07:01] LABS: Anion Gap 10.3 mmol/L (6.8-13.8); BUN/Creatinine Ratio 11.7 (9.0-21.6); Calcium * 8.4 mg/dL (7.9-10.9); Carbon Dioxide 28.9 mmol/L (24-32.6); Estimated Creat Clear 72.3; Potassium 3.2 mmol/L (3.4-4.6)
[2020-10-24] MEDS: LEVOTHYROXINE SODIUM 75 MCG TABLET PO SCH (07:14)
[2020-10-24 07:26] LABS: Atypical (Reactive) Lymph 1 % (0-2); Band 6 % (0-2.0); Eosinophil 1 % (0-3); Lymphocyte 3 % (20-51); Monocyte 7 % (0-9); Neutrophil 82 % (42-75); Neutrophil # 18.2 K/mm3 (1.3-6.0); Platelet Estimate Decreased (NORMAL); RBC Morphology Normal (NORMAL)
[2020-10-24] MEDS: POTASSIUM CHLORIDE 10 MEQ TABLET.SA PO SCH ×2 (10:26→17:31)
[2020-10-24] MEDS: CALCIUM CARBONATE/VITAMIN D3 1 TAB TABLET PO SCH ×2 (10:26→20:20)
[2020-10-24] MEDS: LISINOPRIL 40 MG TABLET PO SCH ×2 (10:27→20:20)
[2020-10-24] MEDS: ACETAMINOPHEN 325 MG TABLET PO PRN (12:15)
[2020-10-24] MEDS: ROSUVASTATIN CALCIUM 10 MG TABLET PO SCH (20:20)
--- NOTE | 2020-10-24 23:42 | PN ---
Subjective - Date and Time Seen Date: 10/24/20 Time: 11:45 Subjective Narrative: Naomi has diffuse abdominal pain. She reports no bowel movement for the last week. She has no appetite. WBC has decreased but still elevated. Abdominal pain 10. Objective - Vitals Vitals: Last Vital Signs Temp 36.5 C 10/24/20 18:53 Pulse 88 10/24/20 22:01 Resp 18 10/24/20 18:53 BP 170/85 H 10/24/20 18:53 Pulse Ox 95 10/24/20 18:53 - Abnormal Lab Findings Abnormal Lab Findings: Abnormal Lab Results 10/24/20 10/24/20 Range/Units 06:25 06:25 WBC 22.2 H (4.0-10.5) K/mm3 Plt Count 134 L (150-450) K/mm3 MPV 13.0 H (8-12.5) fl Neutrophils % (Manual) 82 H (42-75) % Band Neuts % (Manual) 6 H (0-2.0) % Lymphocytes % (Manual) 3 L (20-51) % Neutrophils # (Manual) 18.2 H (1.3-6.0) K/mm3 Lymphocytes # (Manual) 0.7 L (1.5-3.5) k/mm3 Monocytes # (Manual) 1.6 H (0.0-1.0) k/mm3 Platelet Estimate Decreased L (NORMAL) Potassium 3.2 L (3.4-4.6) mmol/L Random Glucose 116 H (70-110) mg/dL - Exam Constitutional: Present: Alert, Oriented x3, Cooperative ENT Exam: Present: hearing grossly normal Respiratory: Present: lungs clear, normal breath sounds Cardiovascular/Chest: Present: regular rate, rhythm, no murmur Abdomen: Present: tender, distended, hypoactive Skin Exam: Present: normal color, warm/dry, no cyanosis Appearance: Present: appropriate appearance, appropriate insight Eye contact: Present: cooperative, good eye contact, normal speech Thoughts: Present: normal thought pattern, no apparent hallucination Assessment/Plan Plan Narrative: Naomi has been having more abdominal pain and still not having bowel movement. Obtained abdominal xray today which showed small bowel obstruction vs ileus. NG tube placed on LIS with good return of fluids. Made NPO. Unclear etiology to obstruction. Will treat conservatively initially. If this fails will need surgical services and if not available here, will need transferred. - Problems/Diagnosis (1) Small bowel obstruction Problem: Acute (2) CAP (community acquired pneumonia) Problem: Acute Qualifiers: Laterality: unspecified laterality Qualified Code(s): J18.9 - Pneumonia, unspecified organism
[2020-10-25] MEDS: metroNIDAZOLE/SODIUM CHLORIDE 500 MG/100 ML BAG IV SCH ×3 (01:28→17:00)
[2020-10-25] MEDS: KETOROLAC TROMETHAMINE 30 MG/ML VIAL IV PRN (03:06)
[2020-10-25] MEDS: PANTOPRAZOLE SODIUM 40 MG in NORMAL SALINE 100 ML IV SCH (04:28)
[2020-10-25] MEDS: NORMAL SALINE 1,000 ML IV PRN ×2 (04:50→19:15)
[2020-10-25] MEDS: ALBUTEROL SULFATE/IPRATROPIUM 3 ML NEBU IH SCH ×2 (05:59→19:22)
[2020-10-25] MEDS: CALCIUM CARBONATE/VITAMIN D3 1 TAB TABLET PO SCH (08:08)
[2020-10-25] MEDS: POTASSIUM CHLORIDE 10 MEQ TABLET.SA PO SCH (08:08)
[2020-10-25] MEDS: LEVOTHYROXINE SODIUM 75 MCG TABLET PO SCH (08:08)
[2020-10-25 10:08] LABS: Hematocrit 41.5 % (37.0-47.0); Hemoglobin 13.7 gm/dL (12.5-16.0); Mean Cell Volume 83.8 fl (78-100); Mean Corpuscular Hemoglobin 27.7 pg (27-31); Mean Platelet Volume 11.3 fl (8-12.5); Neutrophil # 12.5 K/mm3 (1.3-6.0); Neutrophil % 81.1 % (42-75.0); Platelet Count 170 K/mm3 (150-450); Red Blood Count 4.95 M/mm3 (4.2-5.4); Red Cell Distribution Width 13.2 % (11.5-14.0); White Blood Count 15.4 K/mm3 (4.0-10.5)
[2020-10-25] MEDS: LISINOPRIL 40 MG TABLET PO SCH ×2 (10:10→17:00)
[2020-10-25] MEDS: ENALAPRILAT DIHYDRATE 1.25 MG/ML VIAL IV SCH ×3 (10:13→21:53)
[2020-10-25 10:28] LABS: Albumin * 2.3 gm/dl (3.4-5.0); Anion Gap 9.7 mmol/L (6.8-13.8); BUN/Creatinine Ratio 12.7 (9.0-21.6); Bilirubin, Total 0.5 mg/dL (0.0-1.1); Ca. Corrected For Albumin 8.8 mg/dL (8.4-10.2); Calcium * 7.8 mg/dL (7.9-10.9); Carbon Dioxide 30.3 mmol/L (24-32.6); Total Protein 4.8 gm/dL (6.2-8.2)
[2020-10-25] MEDS ORDERED: POTASSIUM CHLORIDE IN WATER 100 ML IV ONE (12:02)
[2020-10-25] MEDS ORDERED: hydrALAZINE HCL 20 MG/ML VIAL IV STA (18:55)
--- NOTE | 2020-10-25 22:48 | PN ---
Subjective - Date and Time Seen Date: 10/25/20 Time: 11:15 Subjective Narrative: Naomi feels much better today. NG tube placed yesterday for small bowel obstruction. Had good return of fluids from NG initially and amount has decreased over time. She denies abdominal pain today. No fever, or chills. No passing gas or BM. Objective - Vitals Vitals: Last Vital Signs Temp 37.3 C 10/25/20 14:36 Pulse 99 10/25/20 21:53 Resp 18 10/25/20 19:32 BP 194/80 H 10/25/20 21:53 Pulse Ox 96 10/25/20 19:22 - Abnormal Lab Findings Abnormal Lab Findings: Abnormal Lab Results 10/25/20 10/25/20 Range/Units 09:36 09:36 WBC 15.4 H D (4.0-10.5) K/mm3 Immature Gran % (Auto) 1.40 H (0.001-0.429) % Immature Gran # (Auto) 0.21 H (0.000-0.0310) K/mm3 Neutrophils % 81.1 H (42-75.0) % Lymphocytes % 9.2 L (20-51) % Neutrophils # 12.5 H (1.3-6.0) K/mm3 Lymphocytes # 1.42 L (1.5-3.5) k/mm3 Monocytes # 1.1 H (0.0-1.0) k/mm3 Potassium 3.0 L (3.4-4.6) mmol/L Calcium 7.8 L (7.9-10.9) mg/dL Total Protein 4.8 L (6.2-8.2) gm/dL Albumin 2.3 L (3.4-5.0) gm/dl - Exam Constitutional: Present: Alert, Oriented x3, Cooperative ENT Exam: Present: hearing grossly normal Respiratory: Present: lungs clear, normal breath sounds, no respiratory distress Cardiovascular/Chest: Present: regular rate, rhythm, no murmur Abdomen: Present: Normal bowel sounds, soft, nontender, nondistended, no rebound tenderness Skin Exam: Present: normal color, warm/dry, no cyanosis Appearance: Present: appropriate appearance, appropriate insight Eye contact: Present: cooperative, good eye contact, normal speech Assessment/Plan Plan Narrative: Clinically feeling much better today. Has small bowel obstruction as well as likely pneumonia. Continue antibiotics. Continue NPO and NG to low intermittant suction. Waiting for passing of gas and stool before trial of clear liquids. Her pain is resolved and suspect that conservative treatment of bowel obstruction will correct the obstruction. She does not have history of abdominal surgery, so scar tissue should not be present. Will repeat abdominal xray in the AM. - Problems/Diagnosis (1) Small bowel obstruction Problem: Acute (2) CAP (community acquired pneumonia) Problem: Acute Qualifiers: Laterality: unspecified laterality Qualified Code(s): J18.9 - Pneumonia, unspecified organism
[2020-10-26] MEDS: LISINOPRIL 40 MG TABLET PO SCH ×4 (00:01→21:04)
[2020-10-26] MEDS: metroNIDAZOLE/SODIUM CHLORIDE 500 MG/100 ML BAG IV SCH ×3 (00:24→17:03)
[2020-10-26] MEDS: hydrALAZINE HCL 20 MG/ML VIAL IV PRN ×2 (02:13→12:30)
[2020-10-26] MEDS: ONDANSETRON HCL/PF 2 MG/ML VIAL IV PRN (02:51)
[2020-10-26] MEDS: KETOROLAC TROMETHAMINE 30 MG/ML VIAL IV PRN (02:53)
[2020-10-26] MEDS: ENALAPRILAT DIHYDRATE 1.25 MG/ML VIAL IV SCH ×4 (03:48→21:05)
[2020-10-26] MEDS: PANTOPRAZOLE SODIUM 40 MG in NORMAL SALINE 100 ML IV SCH (04:57)
[2020-10-26] MEDS: ALBUTEROL SULFATE/IPRATROPIUM 3 ML NEBU IH SCH ×3 (05:59→18:12)
[2020-10-26 06:27] LABS: Hematocrit 40.8 % (37.0-47.0); Hemoglobin 13.5 gm/dL (12.5-16.0); Mean Cell Volume 83.3 fl (78-100); Mean Corpuscular Hemoglobin 27.6 pg (27-31); Mean Corpuscular Hgb Conc 33.1 g/dl (32-36); Mean Platelet Volume 11.4 fl (8-12.5); Neutrophil # 12.1 K/mm3 (1.3-6.0); Neutrophil % 77.6 % (42-75.0); Platelet Count 203 K/mm3 (150-450); Red Cell Distribution Width 13.2 % (11.5-14.0); White Blood Count 15.6 K/mm3 (4.0-10.5)
[2020-10-26 06:35] LABS: Albumin * 2.1 gm/dl (3.4-5.0); Anion Gap 15.6 mmol/L (6.8-13.8); BUN/Creatinine Ratio 12.3 (9.0-21.6); Bilirubin, Total 0.5 mg/dL (0.0-1.1); Ca. Corrected For Albumin 8.8 mg/dL (8.4-10.2); Calcium * 7.6 mg/dL (7.9-10.9); Carbon Dioxide 25.1 mmol/L (24-32.6); Potassium 2.7 mmol/L (3.4-4.6); Total Protein 5.2 gm/dL (6.2-8.2)
[2020-10-26] MEDS: NORMAL SALINE 1,000 ML IV PRN (06:57)
[2020-10-26] MEDS: LEVOTHYROXINE SODIUM 75 MCG TABLET PO SCH (07:03)
--- NOTE | 2020-10-26 09:22 | PN ---
Subjective - Date and Time Seen Date: 10/26/20 Time: 09:20 Subjective Narrative: Feels the same as yesterday- sgtill with weakness and abdominal pain. NGT in place. Afebrile. Denies BM but nurses documentation- BM on 10/23-1, 10/25-1,/ 10/26-2 Objective - Review of Systems Generalized/Overall Review: Reports: Weakness. Denies: Chills, Fever EENTM: Denies: Blurred Vision Respiratory: Denies: Cough, Shortness of Breath, Orthopnea Cardiac: Denies: Chest Pain, Edema, Palpitations Abdominal: Reports: Nausea, Abdominal Pain. Denies: Vomiting, Hematemesis Genitourinary Symptoms: Denies: Urgency, Frequency Musculoskeletal Complaints: Reports: Joint Pain Neurological: Denies: Headache Skin: Denies: Lesions, Rash Misc: All systems neg except as marked - Vitals Vitals: Last Vital Signs Temp 36.8 C 10/26/20 06:18 Pulse 101 H 10/26/20 06:18 Resp 20 10/26/20 06:18 BP 145/55 10/26/20 06:18 Pulse Ox 94 10/26/20 06:18 - Abnormal Lab Findings Abnormal Lab Findings: Abnormal Lab Results 10/25/20 10/25/20 10/26/20 Range/Units 09:36 09:36 06:00 WBC 15.4 H D 15.6 H (4.0-10.5) K/mm3 Immature Gran % (Auto) 1.40 H 2.30 H (0.001-0.429) % Immature Gran # (Auto) 0.21 H 0.36 H (0.000-0.0310) K/mm3 Neutrophils % 81.1 H 77.6 H (42-75.0) % Lymphocytes % 9.2 L 9.4 L (20-51) % Monocytes % 9.7 H (0.0-9) % Neutrophils # 12.5 H 12.1 H (1.3-6.0) K/mm3 Lymphocytes # 1.42 L 1.47 L (1.5-3.5) k/mm3 Monocytes # 1.1 H 1.5 H (0.0-1.0) k/mm3 Potassium 3.0 L (3.4-4.6) mmol/L Anion Gap (6.8-13.8) mmol/L Calcium 7.8 L (7.9-10.9) mg/dL Total Protein 4.8 L (6.2-8.2) gm/dL Albumin 2.3 L (3.4-5.0) gm/dl 10/26/20 Range/Units 06:00 WBC (4.0-10.5) K/mm3 Immature Gran % (Auto) (0.001-0.429) % Immature Gran # (Auto) (0.000-0.0310) K/mm3 Neutrophils % (42-75.0) % Lymphocytes % (20-51) % Monocytes % (0.0-9) % Neutrophils # (1.3-6.0) K/mm3 Lymphocytes # (1.5-3.5) k/mm3 Monocytes # (0.0-1.0) k/mm3 Potassium 2.7 L (3.4-4.6) mmol/L Anion Gap 15.6 H (6.8-13.8) mmol/L Calcium 7.6 L (7.9-10.9) mg/dL Total Protein 5.2 L (6.2-8.2) gm/dL Albumin 2.1 L (3.4-5.0) gm/dl - Exam Constitutional: Present: Alert, Oriented x3, Cooperative ENT Exam: Present: hearing grossly normal Neck: Present: supple. Absent: lymphadenopathy (R), lymphadenopathy (L) Respiratory: Present: decreased breath sounds, No rales, No wheezing Cardiovascular/Chest: Present: regular rate, rhythm, no JVD, no murmur Abdomen: Present: soft, tender - diffusely, distended - mildly, hypoactive Extremity: Present: pedal edema Assessment/Plan Plan Narrative: Naomi is day 7 of IV Rocephin and day 6 of IV metronidazole. Her white blood cell count has plateaued at 15.6. Over the weekend patient was placed on n.p.o. with NGT to due to x-ray showing possible partial small bowel obstruction versus ileus. She still feels very weak and we have physical therapy working on her. Her follow-up abdominal x-ray this morning showed still dilated bowel loops but decrease in size again correlate with partial small bowel obstruction versus ileus. She does have hypokalemia which can lead to ileus and will give her IV replenishment today. We will also change her IV fluids to D5 half NSS with 20 M EQ of KCl as she is n.p.o. Consider starting patient on TPN. Continue with physical therapy. We will follow-up with Dr. Loving. - Problems/Diagnosis (1) Ileus Problem: Acute Narrative: secondary to hypokalemia vs PSBO (2) Hypokalemia Problem: Acute (3) GIB (gastrointestinal bleeding) Problem: Acute (4) Leukocytosis Problem: Acute (5) Lactic acidosis Problem: Resolved (6) CAP (community acquired pneumonia) Problem: Acute Qualifiers: Laterality: unspecified laterality Qualified Code(s): J18.9 - Pneumonia, unspecified organism (7) UTI (urinary tract infection) Problem: Acute Qualifiers: Urinary tract infection type: site unspecified Hematuria presence: without hematuria Qualified Code(s): N39.0 - Urinary tract infection, site not specified (8) HTN (hypertension) Problem: Chronic Qualifiers: Hypertension type: essential hypertension Qualified Code(s): I10 - Essential (primary) hypertension (9) HLD (hyperlipidemia) Problem: Chronic Qualifiers: Hyperlipidemia type: pure hypercholesterolemia Qualified Code(s): E78.00 - Pure hypercholesterolemia, unspecified (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
[2020-10-26] MEDS: POTASSIUM CHLORIDE 20 MEQ in DEXTROSE 5%-0.5 NORMAL SALINE 990 ML IV SCH ×2 (10:24→20:48)
[2020-10-26] MEDS: CALCIUM CARBONATE/VITAMIN D3 1 TAB TABLET PO SCH ×4 (10:24→21:04)
[2020-10-26] MEDS: POTASSIUM CHLORIDE IN WATER 100 ML IV SCH ×4 (10:36→15:09)
[2020-10-26] MEDS: ROSUVASTATIN CALCIUM 10 MG TABLET PO SCH ×3 (20:49→21:04)
[2020-10-27] MEDS: metroNIDAZOLE/SODIUM CHLORIDE 500 MG/100 ML BAG IV SCH ×3 (01:28→17:20)
[2020-10-27] MEDS: ONDANSETRON HCL/PF 2 MG/ML VIAL IV PRN (02:33)
[2020-10-27] MEDS: ENALAPRILAT DIHYDRATE 1.25 MG/ML VIAL IV SCH ×2 (03:18→10:01)
[2020-10-27] MEDS: PANTOPRAZOLE SODIUM 40 MG in NORMAL SALINE 100 ML IV SCH (04:41)
[2020-10-27] MEDS: ALBUTEROL SULFATE/IPRATROPIUM 3 ML NEBU IH SCH ×2 (06:01→18:13)
[2020-10-27] MEDS: POTASSIUM CHLORIDE 20 MEQ in DEXTROSE 5%-0.5 NORMAL SALINE 990 ML IV SCH (06:40)
[2020-10-27 06:47] LABS: Hematocrit 40.3 % (37.0-47.0); Hemoglobin 13.2 gm/dL (12.5-16.0); Mean Cell Volume 82.9 fl (78-100); Mean Corpuscular Hemoglobin 27.2 pg (27-31); Mean Corpuscular Hgb Conc 32.8 g/dl (32-36); Mean Platelet Volume 10.6 fl (8-12.5); Platelet Count 169 K/mm3 (150-450); Red Blood Count 4.86 M/mm3 (4.2-5.4); Red Cell Distribution Width 13.6 % (11.5-14.0)
[2020-10-27 06:57] LABS: Anion Gap 7.7 mmol/L (6.8-13.8); Calcium * 7.7 mg/dL (7.9-10.9); Estimated Creat Clear 86.8; Magnesium 1.3 mg/dL (1.2-2.8); Phosphorus 2.1 mg/dL (2.2-4.2); Potassium 2.7 mmol/L (3.4-4.6)
[2020-10-27 07:09] LABS: Total Cells Counted 100
[2020-10-27 08:11] LABS: Atypical (Reactive) Lymph 4 % (0-2); Band 1 % (0-2.0); Lymphocyte 5 % (20-51); Monocyte 14 % (0-9); Neutrophil 76 % (42-75); Neutrophil # 9.9 K/mm3 (1.3-6.0); Platelet Estimate Normal (NORMAL)
[2020-10-27 08:12] LABS: RBC Morphology Normal (NORMAL)
--- NOTE | 2020-10-27 08:40 | PN ---
Subjective - Date and Time Seen Date: 10/27/20 Time: 08:30 Subjective Narrative: Mohsen says her abdominal pain is better. K did not budge , still at 2.7. had BM x 1. Objective - Review of Systems Generalized/Overall Review: Reports: Weakness. Denies: Chills, Fever EENTM: Denies: Blurred Vision Respiratory: Denies: Cough, Shortness of Breath, Orthopnea Cardiac: Denies: Chest Pain, Edema, Palpitations Abdominal: Reports: Abdominal Pain - impoved. Denies: Nausea, Vomiting Genitourinary Symptoms: Denies: Urgency, Frequency Musculoskeletal Complaints: Reports: Joint Pain Neurological: Denies: Anxiety, Depressed Skin: Denies: Lesions, Rash - Vitals Vitals: Last Vital Signs Temp 37.3 C 10/27/20 06:28 Pulse 88 10/27/20 06:28 Resp 18 10/27/20 06:28 BP 168/60 H 10/27/20 06:28 Pulse Ox 95 10/27/20 06:28 - Abnormal Lab Findings Abnormal Lab Findings: Abnormal Lab Results 10/27/20 10/27/20 Range/Units 06:42 06:42 WBC 13.0 H (4.0-10.5) K/mm3 Neutrophils % (Manual) 76 H (42-75) % Lymphocytes % (Manual) 5 L (20-51) % Monocytes % (Manual) 14 H (0-9) % Neutrophils # (Manual) 9.9 H (1.3-6.0) K/mm3 Lymphocytes # (Manual) 0.7 L (1.5-3.5) k/mm3 Monocytes # (Manual) 1.8 H (0.0-1.0) k/mm3 Atypic/Reactive Lymphs 4 H (0-2) % Sodium 130 L (132-142) mmol/L Potassium 2.7 L (3.4-4.6) mmol/L Random Glucose 141 H D (70-110) mg/dL Calcium 7.7 L (7.9-10.9) mg/dL Phosphorus 2.1 L (2.2-4.2) mg/dL - Exam Constitutional: Present: Alert, Oriented x3, Cooperative ENT Exam: Present: hearing grossly normal Neck: Present: supple. Absent: lymphadenopathy (R), lymphadenopathy (L) Respiratory: Present: decreased breath sounds, No rales, No wheezing Cardiovascular/Chest: Present: regular rate, rhythm, no JVD, no murmur Abdomen: Present: soft, tender - but siginificantly less, still tympanytic, hypoactive Extremity: Present: no calf tenderness, pedal edema Assessment/Plan Plan Narrative: Naomi's potassium is still at 2.7. Magnesium is in the low normal range and phosphorus is low. We will start her on K riders again x4 bags today. I will also give her K-Phos IV twice daily and likely tomorrow start p.o K-Phos as this is also contributing to her generalized weakness with no energy. I will also give her 1 g of magnesium sulfate to keep her magnesium and the middle or upper normal to help with potassium. She had 1 bowel movement per nursing documentation yesterday. I am leaning towards ileus than partial small bowel obstruction. Dr. Loving is on vacation. I will do a follow-up abdominal x-ray tomorrow and probably pull out her NG tube and start her on clear liquids p rogress and progress as tolerated. If we are not able to do so consider starting TPN. This is her eighth hospital day. Her white blood cell count has gone down to 13. - Problems/Diagnosis (1) Ileus Problem: Acute (2) Hypokalemia Problem: Acute (3) Hypophosphatemia Problem: Acute (4) GIB (gastrointestinal bleeding) Problem: Acute (5) Leukocytosis Problem: Acute (6) Lactic acidosis Problem: Resolved (7) CAP (community acquired pneumonia) Problem: Acute Qualifiers: Laterality: unspecified laterality Qualified Code(s): J18.9 - Pneumonia, unspecified organism (8) UTI (urinary tract infection) Problem: Acute Qualifiers: Urinary tract infection type: site unspecified Hematuria presence: without hematuria Qualified Code(s): N39.0 - Urinary tract infection, site not specified (9) HTN (hypertension) Problem: Chronic Qualifiers: Hypertension type: essential hypertension Qualified Code(s): I10 - Essential (primary) hypertension (10) HLD (hyperlipidemia) Problem: Chronic Qualifiers: Hyperlipidemia type: pure hypercholesterolemia Qualified Code(s): E78.00 - Pure hypercholesterolemia, unspecified (11) Idiopathic thrombocytopenia Problem: Chronic (12) Osteoarthritis Problem: Chronic Qualifiers: Osteoarthritis location: unspecified site Osteoarthritis type: primary Qualified Code(s): M19.91 - Primary osteoarthritis, unspecified site
[2020-10-27] MEDS ORDERED: NORMAL SALINE IV ONE (09:00)
[2020-10-27] MEDS ORDERED: MAGNESIUM SULFATE IV ONE (09:00)
[2020-10-27] MEDS: LEVOTHYROXINE SODIUM 75 MCG TABLET PO SCH (09:08)
[2020-10-27] MEDS: CALCIUM CARBONATE/VITAMIN D3 1 TAB TABLET PO SCH ×3 (09:08→20:03)
[2020-10-27] MEDS: LISINOPRIL 40 MG TABLET PO SCH ×2 (09:08→20:04)
[2020-10-27] MEDS: POTASSIUM PHOS M BASIC D BASIC IV SCH ×2 (09:37→21:20)
[2020-10-27] MEDS: NORMAL SALINE IV SCH ×3 (09:37→21:20)
[2020-10-27] MEDS: POTASSIUM CHLORIDE IN WATER 100 ML IV SCH ×6 (09:44→21:23)
[2020-10-27] MEDS: DEXTROSE 5% IV SCH (14:50)
[2020-10-27] MEDS: POTASSIUM CHLORIDE IV SCH (14:50)
[2020-10-27] MEDS ORDERED: POTASSIUM CHLORIDE 10 MEQ TABLET.SA PO ONE (19:21)
[2020-10-27] MEDS: ROSUVASTATIN CALCIUM 10 MG TABLET PO SCH (20:03)
[2020-10-28] MEDS: metroNIDAZOLE/SODIUM CHLORIDE 500 MG/100 ML BAG IV SCH ×3 (00:21→16:10)
[2020-10-28] MEDS: hydrALAZINE HCL 20 MG/ML VIAL IV PRN ×2 (02:15→11:30)
[2020-10-28] MEDS: PANTOPRAZOLE SODIUM 40 MG in NORMAL SALINE 100 ML IV SCH (04:39)
[2020-10-28] MEDS: ALBUTEROL SULFATE/IPRATROPIUM 3 ML NEBU IH SCH ×2 (06:03→18:12)
[2020-10-28 06:33] LABS: Hemoglobin 13.1 gm/dL (12.5-16.0); Mean Cell Volume 83.5 fl (78-100); Mean Corpuscular Hemoglobin 27.3 pg (27-31); Mean Corpuscular Hgb Conc 32.8 g/dl (32-36); Mean Platelet Volume 11.2 fl (8-12.5); Platelet Count 171 K/mm3 (150-450); Red Blood Count 4.79 M/mm3 (4.2-5.4); Red Cell Distribution Width 13.9 % (11.5-14.0); White Blood Count 14.1 K/mm3 (4.0-10.5)
[2020-10-28 06:54] LABS: Anion Gap 11.4 mmol/L (6.8-13.8); BUN/Creatinine Ratio 7.1 (9.0-21.6); Calcium * 7.7 mg/dL (7.9-10.9); Carbon Dioxide 27.1 mmol/L (24-32.6); Estimated Creat Clear 103.3; Magnesium 1.5 mg/dL (1.2-2.8); Phosphorus 2.6 mg/dL (2.2-4.2); Potassium 3.5 mmol/L (3.4-4.6)
[2020-10-28 07:03] LABS: Total Cells Counted 100
[2020-10-28 07:22] LABS: Band 3 % (0-2.0); Lymphocyte 11 % (20-51); Monocyte 11 % (0-9); Neutrophil 75 % (42-75); Neutrophil # 10.6 K/mm3 (1.3-6.0); Platelet Estimate Normal (NORMAL)
[2020-10-28 07:23] LABS: RBC Morphology Normal (NORMAL)
--- NOTE | 2020-10-28 08:03 | PN ---
Subjective - Date and Time Seen Date: 10/28/20 Time: 08:03 Subjective Narrative: had 2 BM last night,afebrile. Had one this morning. Still had about 300 mL of drainage from her NG tube in the last night time nanny. Objective - Review of Systems Generalized/Overall Review: Reports: Weakness. Denies: Chills, Fever EENTM: Denies: Blurred Vision Respiratory: Denies: Cough, Shortness of Breath, Orthopnea Cardiac: Denies: Chest Pain, Edema, Palpitations Abdominal: Reports: Nausea, Abdominal Pain. Denies: Vomiting Genitourinary Symptoms: Denies: Urgency, Frequency Musculoskeletal Complaints: Reports: Joint Pain Neurological: Denies: Headache Skin: Denies: Lesions, Rash - Vitals Vitals: Last Vital Signs Temp 37.6 C 10/28/20 06:36 Pulse 91 10/28/20 06:36 Resp 20 10/28/20 06:36 BP 143/51 10/28/20 06:36 Pulse Ox 92 L 10/28/20 06:36 - Abnormal Lab Findings Abnormal Lab Findings: Abnormal Lab Results 10/27/20 10/27/20 10/28/20 Range/Units 06:42 18:17 06:05 WBC 14.1 H (4.0-10.5) K/mm3 Neutrophils % (Manual) 76 H (42-75) % Band Neuts % (Manual) 3 H (0-2.0) % Lymphocytes % (Manual) 5 L 11 L (20-51) % Monocytes % (Manual) 14 H 11 H (0-9) % Neutrophils # (Manual) 9.9 H 10.6 H (1.3-6.0) K/mm3 Lymphocytes # (Manual) 0.7 L (1.5-3.5) k/mm3 Monocytes # (Manual) 1.8 H 1.6 H (0.0-1.0) k/mm3 Atypic/Reactive Lymphs 4 H (0-2) % Potassium 3.2 L (3.4-4.6) mmol/L Est GFR (Non-Af Amer) (60-130) mL/min BUN/Creatinine Ratio (9.0-21.6) Random Glucose (70-110) mg/dL Calcium (7.9-10.9) mg/dL 10/28/20 Range/Units 06:05 WBC (4.0-10.5) K/mm3 Neutrophils % (Manual) (42-75) % Band Neuts % (Manual) (0-2.0) % Lymphocytes % (Manual) (20-51) % Monocytes % (Manual) (0-9) % Neutrophils # (Manual) (1.3-6.0) K/mm3 Lymphocytes # (Manual) (1.5-3.5) k/mm3 Monocytes # (Manual) (0.0-1.0) k/mm3 Atypic/Reactive Lymphs (0-2) % Potassium (3.4-4.6) mmol/L Est GFR (Non-Af Amer) 155 H D (60-130) mL/min BUN/Creatinine Ratio 7.1 L (9.0-21.6) Random Glucose 120 H (70-110) mg/dL Calcium 7.7 L (7.9-10.9) mg/dL - Exam Constitutional: Present: Alert, Oriented x3, Cooperative ENT Exam: Present: hearing grossly normal Neck: Present: supple. Absent: lymphadenopathy (R), lymphadenopathy (L) Respiratory: Present: decreased breath sounds, No rales, No wheezing Cardiovascular/Chest: Present: regular rate, rhythm, no JVD, no murmur Abdomen: Present: soft, tender - Slightly tender lower abdominal area, distended - Mildly distended, hypoactive Extremity: Present: no calf tenderness, pedal edema Assessment/Plan Plan Narrative: Naomi is on day 9-day IV Rocephin and 8-day IV metronidazole. Her white blood cell count which is gone down to 13 yesterday is up to 14 again today. She denies any coughing, fever or chills, burning sensation when she urinates. This is also day 5 of her NG tube. I told her that she is still draining about 300 mL of fluids through her NG tube and normally we would like to pull it out if it is down to about 30 mL. We will get an abdominal x-ray today and see if we will need to keep her on the NG tube still. Her potassium is up to 3.5. She was encouraged to ambulate in the hallway. ADDENDUM: AXR shows interval improvement but peristent dilated loops in the upper central area. Will get health records technology teacher consult and start TPN. Will need to give her time for her ileus to get back to normal as her K is just corrected now. If dilated bowels persist, then will do a CTS with gastrograffin. - Problems/Diagnosis (1) Ileus Problem: Acute Narrative: vs PSBO (2) Hypokalemia Problem: Resolved (3) Hypophosphatemia Problem: Resolved (4) Leukocytosis Problem: Acute (5) Enteritis Problem: Acute Narrative: nonspecific (6) GIB (gastrointestinal bleeding) Problem: Resolved (7) HTN (hypertension) Problem: Chronic Qualifiers: Hypertension type: essential hypertension Qualified Code(s): I10 - Essential (primary) hypertension (8) HLD (hyperlipidemia) Problem: Chronic Qualifiers: Hyperlipidemia type: pure hypercholesterolemia Qualified Code(s): E78.00 - Pure hypercholesterolemia, unspecified (9) Idiopathic thrombocytopenia Problem: Chronic (10) Osteoarthritis Problem: Chronic Qualifiers: Osteoarthritis location: unspecified site Osteoarthritis type: primary Qualified Code(s): M19.91 - Primary osteoarthritis, unspecified site
[2020-10-28] MEDS: NAPH,MB-DB/K PH,MBDB 1 PACKET PACKET PO SCH (08:54)
[2020-10-28] MEDS: LEVOTHYROXINE SODIUM 75 MCG TABLET PO SCH (08:54)
[2020-10-28] MEDS: MAGNESIUM OXIDE 400 MG TABLET PO SCH (08:54)
[2020-10-28] MEDS: CALCIUM CARBONATE/VITAMIN D3 1 TAB TABLET PO SCH ×2 (08:55→20:19)
[2020-10-28] MEDS: LISINOPRIL 40 MG TABLET PO SCH ×2 (08:55→20:19)
[2020-10-28] MEDS: POTASSIUM CHLORIDE IV SCH ×2 (09:14→10:43)
[2020-10-28] MEDS: NORMAL SALINE IV SCH ×2 (09:14→10:43)
[2020-10-28] MEDS: DEXTROSE 5% IV SCH ×2 (09:14→10:43)
[2020-10-28] MEDS ORDERED: FUROSEMIDE 10 MG/ML VIAL IV ONE (15:20)
[2020-10-28] MEDS: INSULIN LISPRO 100 UNITS/ML VIAL SC SCH (16:19)
[2020-10-28] MEDS ORDERED: POTASSIUM CHLORIDE 10 MEQ TABLET.SA NG SCH (17:00)
--- NOTE | 2020-10-28 20:10 | ANES ---
Anesthesia Procedure Note Procedure Note: ANESTHESIA PROCEDURE NOTE Date of Procedure: 10/28/2020 Time of procedure: 1900. Performed by: ANGELO Garcia CRNA, MSN Preprocedure diagnosis: Lack of venous access, TPN requirement. Post procedure diagnosis: Same. Procedure: PICC line placement attempted. Indications: TPN requirement. Findings: See below. Details of the procedure: After surveying the patient's venous access with ultrasound, the patient was prepped with DuraPrep and 0.1 mL of 1% lidocaine solution was injected at the intended PICC site. The only accessible vein apparent appears to constrict proximally however I planned the insertion as if we were going to be able to insert the line to its normal length. The catheter was trimmed to 45 centimeters and flushed with sterile saline solution. After full prep and drape was performed, creating a sterile field the ultrasound was used to reidentify the intended venous access. A #22-gauge IV was inserted under ultrasound guidance, a guidewire was threaded through the 22-gauge catheter however it ran into an obstruction several centimeters distal to the IV insertion site. And attempt to salvage the IV insertion, I threaded a 20-gauge catheter over the guidewire however was unable to advance it to any reasonable degree. The procedure was then abandoned and explained to the patient. Dr. Ruiz was notified that there did not appear to be any reasonable peripheral line for PICC line insertion. EBL: Minimal. Fluids: N/A. Specimen: N/A. Please see Radiology/Ultrasound for retained images of procedure. Post procedure condition: The patient tolerated the procedure well. No complications were noted. Thank you for this consultation. Con Bartholomew CRNA, DRAMA PROFESSOR, MSN
[2020-10-28] MEDS: ROSUVASTATIN CALCIUM 10 MG TABLET PO SCH (20:19)
[2020-10-28] MEDS: ACETAMINOPHEN 325 MG TABLET PO PRN (20:29)
[2020-10-29] MEDS: metroNIDAZOLE/SODIUM CHLORIDE 500 MG/100 ML BAG IV SCH ×3 (00:25→18:01)
[2020-10-29] MEDS: PANTOPRAZOLE SODIUM 40 MG in NORMAL SALINE 100 ML IV SCH (05:12)
[2020-10-29] MEDS: ALBUTEROL SULFATE/IPRATROPIUM 3 ML NEBU IH SCH ×2 (07:05→18:33)
[2020-10-29 07:10] LABS: Albumin * 2.6 gm/dl (3.4-5.0); Anion Gap 13.2 mmol/L (6.8-13.8); BUN/Creatinine Ratio 8.5 (9.0-21.6); Bilirubin, Total 0.7 mg/dL (0.0-1.1); Calcium * 8.2 mg/dL (7.9-10.9); Carbon Dioxide 26.9 mmol/L (24-32.6); Magnesium 1.4 mg/dL (1.2-2.8); Phosphorus 2.9 mg/dL (2.2-4.2); Potassium 3.1 mmol/L (3.4-4.6); Total Protein 5.9 gm/dL (6.2-8.2)
[2020-10-29] MEDS: LEVOTHYROXINE SODIUM 75 MCG TABLET PO SCH (07:50)
[2020-10-29] MEDS ORDERED: POTASSIUM CHLORIDE 20 MEQ TABLET.SA PO ONE (08:14)
--- NOTE | 2020-10-29 09:38 | PN ---
Subjective - Date and Time Seen Date: 10/29/20 Time: 09:29 Subjective Narrative: Is feeling weak but better in terms of her abdominal situation. She is still a febrile. She is complaining of her nasogastric tube and that she is having discomfort wants to have it out. Objective - Review of Systems Generalized/Overall Review: Reports: Weakness. Denies: Chills, Fever EENTM: Denies: Blurred Vision Respiratory: Denies: Cough, Shortness of Breath, Orthopnea Cardiac: Denies: Chest Pain, Edema, Palpitations Abdominal: Denies: Nausea, Vomiting, Abdominal Pain Genitourinary Symptoms: Denies: Urgency, Frequency Neurological: Denies: Headache Skin: Denies: Lesions, Rash Misc: All systems neg except as marked - Vitals Vitals: Last Vital Signs Temp 36.5 C 10/29/20 08:00 Pulse 100 10/29/20 08:00 Resp 20 10/29/20 08:00 BP 186/82 H 10/29/20 08:00 Pulse Ox 94 10/29/20 08:00 - Abnormal Lab Findings Abnormal Lab Findings: Abnormal Lab Results 10/29/20 Range/Units 06:45 Potassium 3.1 L (3.4-4.6) mmol/L Est GFR (Non-Af Amer) 136 H (60-130) mL/min BUN/Creatinine Ratio 8.5 L (9.0-21.6) Random Glucose 117 H (70-110) mg/dL Total Protein 5.9 L (6.2-8.2) gm/dL Albumin 2.6 L (3.4-5.0) gm/dl - Exam Constitutional: Present: Alert, Oriented x3, Cooperative ENT Exam: Present: hearing grossly normal Neck: Present: supple. Absent: lymphadenopathy (R), lymphadenopathy (L) Respiratory: Present: decreased breath sounds, No rales, No wheezing Cardiovascular/Chest: Present: regular rate, rhythm, no JVD, no murmur Abdomen: Present: soft, nontender, distended - Distention is significantly decreased with laying flat in bed, hypoactive Extremity: Present: no calf tenderness, pedal edema Assessment/Plan Plan Narrative: Naomi is day 10 of IV Rocephin and day 9 of IV metronidazole. She was admitted initially for severe weakness, lactic acidosis, leukocytosis of 35. 5 days prior to admission the patient was being treated for pneumonia and UTI with Levaquin. She was admitted then for possibility of having failed outpatient carlos atment and she was started on IV Rocephin. While in the floor the patient had watery diarrhea with maroonish blood. A CT scan of her abdomen and pelvis showed nonspecific enteritis. Dr. Loving was consulted. She was continued on IV Rocephin and IV metronidazole was started and patient was put on clear liquids and IV fluids. Over the weekend the patient continued to have abdominal pain and an abdominal x-ray showed possible partial small bowel obstruction versus ileus. She was put on n.p.o. and NGT was placed. She also had hypokalemia. We tried to start her on TPN however anesthesia was not successful in putting a PICC line. We do not have a general surgeon to put the central line. Since her for follow-up abdominal x-ray showed interval improvement, and since the patient wants her NG tube removed, we will pull out his NG tube and put her on clear liquids. We will stop her IV antibiotics after today. The patient is aware that if she develops nausea vomiting abdominal pain we may have to put her back on an NG tube thru the other nostril of her nose. She is agreeable with this plan. Her potassium is down again to 3.1 and we will replenish it. We have PT working on her. Her BP sometimes goes cheryl and she has Hydralazine PRN. - Problems/Diagnosis (1) Ileus Problem: Acute (2) Hypokalemia Problem: Resolved (3) Hypophosphatemia Problem: Resolved (4) Leukocytosis Problem: Acute (5) Enteritis Problem: Acute (6) GIB (gastrointestinal bleeding) Problem: Resolved (7) HTN (hypertension) Problem: Chronic Qualifiers: Hypertension type: essential hypertension Qualified Code(s): I10 - Essential (primary) hypertension (8) HLD (hyperlipidemia) Problem: Chronic Qualifiers: Hyperlipidemia type: pure hypercholesterolemia Qualified Code(s): E78.00 - Pure hypercholesterolemia, unspecified (9) Idiopathic thrombocytopenia Problem: Chronic (10) Osteoarthritis Problem: Chronic Qualifiers: Osteoarthritis location: unspecified site Osteoarthritis type: primary Q ualified Code(s): M19.91 - Primary osteoarthritis, unspecified site
[2020-10-29] MEDS: NORMAL SALINE IV SCH (10:55)
[2020-10-29] MEDS: POTASSIUM CHLORIDE IV SCH (10:55)
[2020-10-29] MEDS: DEXTROSE 5% IV SCH (10:55)
[2020-10-29] MEDS: MAGNESIUM OXIDE 400 MG TABLET PO SCH (10:58)
[2020-10-29] MEDS: CALCIUM CARBONATE/VITAMIN D3 1 TAB TABLET PO SCH ×2 (10:59→20:26)
[2020-10-29] MEDS: LISINOPRIL 40 MG TABLET PO SCH ×2 (10:59→20:26)
[2020-10-29] MEDS: NAPH,MB-DB/K PH,MBDB 1 PACKET PACKET PO SCH (10:59)
[2020-10-29] MEDS: POTASSIUM CHLORIDE 20 MEQ TABLET.SA PO SCH ×2 (11:15→18:01)
[2020-10-29] MEDS ORDERED: POTASSIUM PHOS,M-BASIC-D-BASIC 18 MM, ELECTROLYTE SOLUTION,INJ 20 ML, MULTIVIT INFUSN,A... IV SCH ×6 (15:45)
[2020-10-29] MEDS: amLODIPine BESYLATE 10 MG TABLET PO SCH (15:59)
[2020-10-29] MEDS: hydrALAZINE HCL 20 MG/ML VIAL IV PRN (18:24)
[2020-10-29] MEDS: ROSUVASTATIN CALCIUM 10 MG TABLET PO SCH (20:26)
[2020-10-30] MEDS: ACETAMINOPHEN 325 MG TABLET PO PRN ×3 (00:18→17:04)
[2020-10-30] MEDS: metroNIDAZOLE/SODIUM CHLORIDE 500 MG/100 ML BAG IV SCH ×2 (00:19→09:39)
[2020-10-30] MEDS: PANTOPRAZOLE SODIUM 40 MG in NORMAL SALINE 100 ML IV SCH (04:07)
[2020-10-30] MEDS: ALBUTEROL SULFATE/IPRATROPIUM 3 ML NEBU IH SCH ×2 (07:20→18:33)
[2020-10-30] MEDS: LEVOTHYROXINE SODIUM 75 MCG TABLET PO SCH (07:39)
[2020-10-30] MEDS ORDERED: PREGABALIN 50 MG CAPSULE PO PRN (08:23)
--- NOTE | 2020-10-30 08:25 | PN ---
Subjective - Date and Time Seen Date: 10/30/20 Time: 08:22 Subjective Narrative: patient tolerating clear liquids. she feels gassy. she sasy she has been burping and farting. Objective - Review of Systems Generalized/Overall Review: Reports: Weakness. Denies: Chills, Fever EENTM: Denies: Blurred Vision Respiratory: Denies: Cough, Shortness of Breath, Orthopnea Cardiac: Denies: Chest Pain, Edema, Palpitations Abdominal: Denies: Nausea, Vomiting, Abdominal Pain Genitourinary Symptoms: Denies: Urgency, Frequency Musculoskeletal Complaints: Reports: Joint Pain Neurological: Denies: Headache Skin: Reports: Other - Pain near her IV site last last night. Denies: Lesions, Rash - Vitals Vitals: Last Vital Signs Temp 36.8 C 10/30/20 06:43 Pulse 91 10/30/20 07:20 Resp 18 10/30/20 07:20 BP 136/76 10/30/20 06:43 Pulse Ox 95 10/30/20 07:20 - Exam Constitutional: Present: Alert, Oriented x3, Cooperative ENT Exam: Present: hearing grossly normal Neck: Present: supple. Absent: lymphadenopathy (R), lymphadenopathy (L) Respiratory: Present: decreased breath sounds, No rales, No wheezing Cardiovascular/Chest: Present: regular rate, rhythm, no JVD, no murmur Abdomen: Present: soft, nontender, distended - Mildly, hypoactive Extremity: Present: no calf tenderness, pedal edema Assessment/Plan Plan Narrative: Naomi is tolerating clear liquids. She does say that she feels gassy but has been burping and has been passing out gas as well (farting). She had 1 bowel movement yesterday. She is day 10 of her IV Flagyl and we will discontinue it. We will also discontinue her tramadol and we will give her pregabalin for her pain as needed. She can continue with her acetaminophen for pain as needed. I told her to have nurse apply warm compress to her area of her previous IV site. We will likely progress her diet over the weekend and discharge planning next week. - Problems/Diagnosis (1) Ileus Problem: Acute (2) Hypokalemia Problem: Resolved (3) Hypophosphatemia Problem: Resolved (4) Leukocytosis Problem: Acute (5) Enteritis Problem: Acute (6) GIB (gastrointestinal bleeding) Problem: Resolved (7) HTN (hypertension) Problem: Chronic Qualifiers: Hypertension type: essential hypertension Qualified Code(s): I10 - Essential (primary) hypertension (8) HLD (hyperlipidemia) Problem: Chronic Qualifiers: Hyperlipidemia type: pure hypercholesterolemia Qualified Code(s): E78.00 - Pure hypercholesterolemia, unspecified (9) Idiopathic thrombocytopenia Problem: Chronic (10) Osteoarthritis Problem: Chronic Qualifiers: Osteoarthritis location: unspecified site Osteoarthritis type: primary Qualified Code(s): M19.91 - Primary osteoarthritis, unspecified site
[2020-10-30] MEDS: CALCIUM CARBONATE/VITAMIN D3 1 TAB TABLET PO SCH ×2 (09:40→20:46)
[2020-10-30] MEDS: MAGNESIUM OXIDE 400 MG TABLET PO SCH (09:41)
[2020-10-30] MEDS: NAPH,MB-DB/K PH,MBDB 1 PACKET PACKET PO SCH (09:41)
[2020-10-30] MEDS: amLODIPine BESYLATE 10 MG TABLET PO SCH (09:42)
[2020-10-30] MEDS: LISINOPRIL 40 MG TABLET PO SCH ×2 (09:47→20:46)
[2020-10-30] MEDS: POTASSIUM CHLORIDE 20 MEQ TABLET.SA PO SCH ×2 (09:50→17:04)
[2020-10-30] MEDS: COLCHICINE 0.6 MG TABLET PO PRN (10:50)
[2020-10-30] MEDS: NORMAL SALINE IV SCH (12:22)
[2020-10-30] MEDS: POTASSIUM CHLORIDE IV SCH (12:22)
[2020-10-30] MEDS: DEXTROSE 5% IV SCH (12:22)
[2020-10-30] MEDS: INSULIN LISPRO 100 UNITS/ML VIAL SC SCH ×4 (13:07→13:09)
[2020-10-30] MEDS: FAT EMULSIONS 50 G in Premix Bag 1 BAG IV SCH (13:09)
[2020-10-30] MEDS: ROSUVASTATIN CALCIUM 10 MG TABLET PO SCH (20:46)
[2020-10-31] MEDS: PANTOPRAZOLE SODIUM 40 MG in NORMAL SALINE 100 ML IV SCH (04:41)
[2020-10-31] MEDS: ALBUTEROL SULFATE/IPRATROPIUM 3 ML NEBU IH SCH ×3 (07:00→18:22)
[2020-10-31] MEDS: LEVOTHYROXINE SODIUM 75 MCG TABLET PO SCH (07:19)
[2020-10-31] MEDS: COLCHICINE 0.6 MG TABLET PO PRN (08:16)
[2020-10-31] MEDS: CALCIUM CARBONATE/VITAMIN D3 1 TAB TABLET PO SCH ×2 (08:16→20:45)
[2020-10-31] MEDS: amLODIPine BESYLATE 10 MG TABLET PO SCH (08:17)
[2020-10-31] MEDS: POTASSIUM CHLORIDE 20 MEQ TABLET.SA PO SCH ×2 (08:17→16:36)
[2020-10-31] MEDS: MAGNESIUM OXIDE 400 MG TABLET PO SCH (08:17)
[2020-10-31] MEDS: NAPH,MB-DB/K PH,MBDB 1 PACKET PACKET PO SCH (08:17)
[2020-10-31] MEDS: LISINOPRIL 40 MG TABLET PO SCH ×2 (08:18→20:45)
--- NOTE | 2020-10-31 08:55 | PN ---
Subjective - Date and Time Seen Date: 10/31/20 Time: 08:54 Subjective Narrative: tolerated full liquids. complaining of pain where IV site was before. Objective - Review of Systems Generalized/Overall Review: Reports: Weakness. Denies: Chills, Fever EENTM: Denies: Blurred Vision Respiratory: Denies: Cough, Shortness of Breath, Orthopnea Cardiac: Denies: Chest Pain, Edema, Palpitations Abdominal: Denies: Nausea, Vomiting, Abdominal Pain Genitourinary Symptoms: Denies: Urgency, Frequency Musculoskeletal Complaints: Reports: Joint Pain Neurological: Denies: Headache Skin: Denies: Lesions, Rash Misc: All systems neg except as marked - Vitals Vitals: Last Vital Signs Temp 36.5 C 10/31/20 06:30 Pulse 97 10/31/20 08:18 Resp 22 H 10/31/20 06:30 BP 157/75 H 10/31/20 08:18 Pulse Ox 95 10/31/20 06:30 - Exam Constitutional: Present: Alert, Oriented x3, Cooperative ENT Exam: Present: hearing grossly normal Neck: Absent: supple, lymphadenopathy (R), lymphadenopathy (L) Respiratory: Present: decreased breath sounds, No rales, No wheezing Cardiovascular/Chest: Present: regular rate, rhythm, no JVD, no murmur Abdomen: Present: soft, nontender, distended - Mildly, hypoactive Extremity: Present: no calf tenderness, pedal edema, other - Positive tenderness and swelling on her distal forearm and wrist area left Assessment/Plan Plan Narrative: Naomi is day 12 of her hospital stay for severe weakness, lactic acidosis, abdominal pain with leukocytosis. Her CT scan of the abdomen and pelvis showed nonspecific enteritis. Her follow-up abdominal x-ray showed ileus versus partial small bowel obstruction. NG tube was inserted and she was kept n.p.o. with IV fluids and received 10 days of IV antibiotics. TPN was ordered however patient PICC line was not successful and we did not have a general surgeon to put a central line. She was started back on clear liquids as she was having bowel movement and abdominal x-ray showed interval improvement of dilated bowel loops. She is wondering if the pain of her left upper extremity is due to her gout. I told her it is possible and it is also possible that it could be due to phlebitis or de Quervain's. We will make her colchicine on a routine basis instead of the as needed at this time. She has tolerated full liquids and will advance her to soft diet tonight. We will do blood work and follow-up abdominal x-ray tomorrow with discharge planning next week. - Problems/Diagnosis (1) Ileus Problem: Acute (2) Hypokalemia Problem: Resolved (3) Hypophosphatemia Problem: Resolved (4) Leukocytosis Problem: Acute (5) Enteritis Problem: Acute (6) GIB (gastrointestinal bleeding) Problem: Resolved (7) HTN (hypertension) Problem: Chronic Qualifiers: Hypertension type: essential hypertension Qualified Code(s): I10 - Essential (primary) hypertension (8) HLD (hyperlipidemia) Problem: Chronic Qualifiers: Hyperlipidemia type: pure hypercholesterolemia Qualified Code(s): E78.00 - Pure hypercholesterolemia, unspecified (9) Idiopathic thrombocytopenia Problem: Chronic (10) Osteoarthritis Problem: Chronic Qualifiers: Osteoarthritis location: unspecified site Osteoarthritis type: primary Qualified Code(s): M19.91 - Primary osteoarthritis, unspecified site (11) Left wrist pain Problem: Acute
[2020-10-31] MEDS: NORMAL SALINE IV SCH (09:13)
[2020-10-31] MEDS: POTASSIUM CHLORIDE IV SCH (09:13)
[2020-10-31] MEDS: DEXTROSE 5% IV SCH (09:13)
[2020-10-31] MEDS: ACETAMINOPHEN 325 MG TABLET PO PRN ×2 (11:08→20:51)
[2020-10-31] MEDS: COLCHICINE 0.6 MG TABLET PO SCH (16:28)
[2020-10-31] MEDS: ROSUVASTATIN CALCIUM 10 MG TABLET PO SCH (20:45)
[2020-11-01] MEDS: ACETAMINOPHEN 325 MG TABLET PO PRN ×2 (04:30→11:18)
[2020-11-01] MEDS: PANTOPRAZOLE SODIUM 40 MG in NORMAL SALINE 100 ML IV SCH (04:32)
[2020-11-01 06:21] LABS: Hematocrit 39.1 % (37.0-47.0); Hemoglobin 12.7 gm/dL (12.5-16.0); Mean Cell Volume 83.5 fl (78-100); Mean Corpuscular Hemoglobin 27.1 pg (27-31); Mean Corpuscular Hgb Conc 32.5 g/dl (32-36); Mean Platelet Volume 11.6 fl (8-12.5); Neutrophil # 10.7 K/mm3 (1.3-6.0); Neutrophil % 78.1 % (42-75.0); Platelet Count 159 K/mm3 (150-450); Red Blood Count 4.68 M/mm3 (4.2-5.4); Red Cell Distribution Width 13.7 % (11.5-14.0); White Blood Count 13.7 K/mm3 (4.0-10.5)
[2020-11-01] MEDS: ALBUTEROL SULFATE/IPRATROPIUM 3 ML NEBU IH SCH ×2 (06:22→18:23)
[2020-11-01 06:34] LABS: Anion Gap 13.5 mmol/L (6.8-13.8); BUN/Creatinine Ratio 10.2 (9.0-21.6); Calcium * 8.3 mg/dL (7.9-10.9); Carbon Dioxide 25.7 mmol/L (24-32.6); Estimated Creat Clear 88.6; Magnesium 1.4 mg/dL (1.2-2.8); Phosphorus 3.3 mg/dL (2.2-4.2); Potassium 4.2 mmol/L (3.4-4.6)
[2020-11-01] MEDS: LEVOTHYROXINE SODIUM 75 MCG TABLET PO SCH (07:05)
[2020-11-01] MEDS: DEXTROSE 5% IV SCH (07:19)
[2020-11-01] MEDS: NORMAL SALINE IV SCH (07:19)
[2020-11-01] MEDS: POTASSIUM CHLORIDE IV SCH (07:19)
[2020-11-01] MEDS: LISINOPRIL 40 MG TABLET PO SCH ×2 (08:14→20:21)
[2020-11-01] MEDS: MAGNESIUM OXIDE 400 MG TABLET PO SCH (08:14)
[2020-11-01] MEDS: CALCIUM CARBONATE/VITAMIN D3 1 TAB TABLET PO SCH ×2 (08:15→20:21)
[2020-11-01] MEDS: POTASSIUM CHLORIDE 20 MEQ TABLET.SA PO SCH ×2 (08:15→16:14)
[2020-11-01] MEDS: NAPH,MB-DB/K PH,MBDB 1 PACKET PACKET PO SCH (08:15)
[2020-11-01] MEDS: COLCHICINE 0.6 MG TABLET PO SCH (08:15)
[2020-11-01] MEDS: amLODIPine BESYLATE 10 MG TABLET PO SCH (08:15)
--- NOTE | 2020-11-01 09:01 | PN ---
Subjective - Date and Time Seen Date: 11/01/20 Time: 09:00 Subjective Narrative: tolerating soft diet. had 4 BM. Left wrist less swollen. She says her wrist pain is significantly decreased. Objective - Review of Systems Generalized/Overall Review: Reports: Weakness. Denies: Chills, Fever EENTM: Denies: Blurred Vision Respiratory: Denies: Cough, Shortness of Breath, Orthopnea Cardiac: Denies: Chest Pain, Edema, Palpitations Abdominal: Denies: Nausea, Vomiting, Abdominal Pain Genitourinary Symptoms: Denies: Urgency, Frequency Musculoskeletal Complaints: Reports: Gout Neurological: Denies: Headache Skin: Denies: Lesions, Rash Misc: All systems neg except as marked - Vitals Vitals: Last Vital Signs Temp 36.5 C 11/01/20 06:00 Pulse 92 11/01/20 08:15 Resp 20 11/01/20 06:31 BP 157/72 H 11/01/20 08:15 Pulse Ox 95 11/01/20 06:22 - Abnormal Lab Findings Abnormal Lab Findings: Abnormal Lab Results 11/01/20 11/01/20 11/01/20 Range/Units 06:10 06:10 06:11 WBC 13.7 H (4.0-10.5) K/mm3 Immature Gran % (Auto) 0.70 H (0.001-0.429) % Immature Gran # (Auto) 0.10 H (0.000-0.0310) K/mm3 Neutrophils % 78.1 H (42-75.0) % Lymphocytes % 10.9 L (20-51) % Neutrophils # 10.7 H (1.3-6.0) K/mm3 Monocytes # 1.1 H (0.0-1.0) k/mm3 ESR 42 H (0-15) mm/hr Random Glucose (70-110) mg/dL Uric Acid (2.6-7.2) mg/dL C-Reactive Prot, Quant 6.5 H (0.0-0.9) mg/dL 11/01/20 Range/Units 06:11 WBC (4.0-10.5) K/mm3 Immature Gran % (Auto) (0.001-0.429) % Immature Gran # (Auto) (0.000-0.0310) K/mm3 Neutrophils % (42-75.0) % Lymphocytes % (20-51) % Neutrophils # (1.3-6.0) K/mm3 Monocytes # (0.0-1.0) k/mm3 ESR (0-15) mm/hr Random Glucose 117 H (70-110) mg/dL Uric Acid 2.0 L (2.6-7.2) mg/dL C-Reactive Prot, Quant (0.0-0.9) mg/dL - Exam Constitutional: Present: Alert, Oriented x3, Cooperative ENT Exam: Present: hearing grossly normal Neck: Present: supple. Absent: lymphadenopathy (R), lymphadenopathy (L) Respiratory: Present: normal breath sounds, No rales, No wheezing Cardiovascular/Chest: Present: regular rate, rhythm, no JVD, no murmur Abdomen: Present: Normal bowel sounds, soft, nontender, distended - Slightly Extremity: Present: no calf tenderness, pedal edema, other - Swelling and tenderness left wrist radial side significantly decreased Assessment/Plan Plan Narrative: Naomi is hospital day 13. She is afebrile and tolerating soft diet. Her white blood cell count is 13.7 and likely due to gout. Her uric acid is elevated. We had restarted his colchicine yesterday and she is feeling much better with her left wrist. Her follow-up abdominal x-ray showed interval improvement of gas bowel pattern. She is for possible discharge tomorrow. - Problems/Diagnosis (1) Ileus Problem: Acute (2) Hypokalemia Problem: Resolved (3) Hypophosphatemia Problem: Resolved (4) Leukocytosis Problem: Acute (5) Enteritis Problem: Acute (6) GIB (gastrointestinal bleeding) Problem: Resolved (7) HTN (hypertension) Problem: Chronic Qualifiers: Hypertension type: essential hypertension Qualified Code(s): I10 - Essential (primary) hypertension (8) HLD (hyperlipidemia) Problem: Chronic Qualifiers: Hyperlipidemia type: pure hypercholesterolemia Qualified Code(s): E78.00 - Pure hypercholesterolemia, unspecified (9) Idiopathic thrombocytopenia Problem: Chronic (10) Osteoarthritis Problem: Chronic Qualifiers: Osteoarthritis location: unspecified site Osteoarthritis type: primary Qualified Code(s): M19.91 - Primary osteoarthritis, unspecified site (11) Left wrist pain Problem: Acute (12) Gout attack Problem: Acute (13) Gout Problem: Chronic Qualifiers: Gout site: hand Gout etiology: unspecified cause Chronicity: acute Laterality: left Qualified Code(s): M10.9 - Gout, unspecified
[2020-11-01] MEDS: ONDANSETRON HCL/PF 2 MG/ML VIAL IV PRN (18:56)
[2020-11-01] MEDS: ROSUVASTATIN CALCIUM 10 MG TABLET PO SCH (20:21)
[2020-11-01] MEDS ORDERED: SENNOSIDES/DOCUSATE SODIUM 1 TAB TABLET PO SCH (21:00)
[2020-11-02] MEDS: NORMAL SALINE IV SCH (01:56)
[2020-11-02] MEDS: POTASSIUM CHLORIDE IV SCH (01:56)
[2020-11-02] MEDS: DEXTROSE 5% IV SCH (01:56)
[2020-11-02] MEDS: ACETAMINOPHEN 325 MG TABLET PO PRN (02:45)
[2020-11-02] MEDS: PANTOPRAZOLE SODIUM 40 MG in NORMAL SALINE 100 ML IV SCH (04:34)
[2020-11-02] MEDS: ALBUTEROL SULFATE/IPRATROPIUM 3 ML NEBU IH SCH (06:17)
[2020-11-02] MEDS: LEVOTHYROXINE SODIUM 75 MCG TABLET PO SCH (06:35)
[2020-11-02] MEDS ORDERED: traMADol HCL 50 MG TABLET PO PRN (08:51)
--- NOTE | 2020-11-02 08:53 | PN ---
Subjective - Date and Time Seen Date: 11/02/20 Time: 08:52 Subjective Narrative: LBP 8/10. elevated BP. Objective - Vitals Vitals: Last Vital Signs Temp 36.7 C 11/02/20 06:30 Pulse 87 11/02/20 06:30 Resp 20 11/02/20 06:30 BP 161/68 H 11/02/20 06:30 Pulse Ox 98 11/02/20 06:30 Assessment/Plan - Problems/Diagnosis (1) Ileus Problem: Acute (2) Hypokalemia Problem: Resolved (3) Hypophosphatemia Problem: Resolved (4) Leukocytosis Problem: Acute (5) Enteritis Problem: Acute (6) GIB (gastrointestinal bleeding) Problem: Resolved (7) HTN (hypertension) Problem: Chronic Qualifiers: Hypertension type: essential hypertension Qualified Code(s): I10 - Essential (primary) hypertension (8) HLD (hyperlipidemia) Problem: Chronic Qualifiers: Hyperlipidemia type: pure hypercholesterolemia Qualified Code(s): E78.00 - Pure hypercholesterolemia, unspecified (9) Idiopathic thrombocytopenia Problem: Chronic (10) Osteoarthritis Problem: Chronic Qualifiers: Osteoarthritis location: unspecified site Osteoarthritis type: primary Qualified Code(s): M19.91 - Primary osteoarthritis, unspecified site (11) Left wrist pain Problem: Acute (12) Gout attack Problem: Acute (13) Gout Problem: Chronic Qualifiers: Gout site: hand Gout etiology: unspecified cause Chronicity: acute Laterality: left Qualified Code(s): M10.9 - Gout, unspecified
[2020-11-02] MEDS: MAGNESIUM OXIDE 400 MG TABLET PO SCH (08:58)
[2020-11-02] MEDS: amLODIPine BESYLATE 10 MG TABLET PO SCH (08:58)
[2020-11-02] MEDS: COLCHICINE 0.6 MG TABLET PO SCH (08:58)
[2020-11-02] MEDS: CALCIUM CARBONATE/VITAMIN D3 1 TAB TABLET PO SCH (08:58)
[2020-11-02] MEDS: NAPH,MB-DB/K PH,MBDB 1 PACKET PACKET PO SCH (08:58)
[2020-11-02] MEDS: POTASSIUM CHLORIDE 20 MEQ TABLET.SA PO SCH (08:58)
[2020-11-02] MEDS: LISINOPRIL 40 MG TABLET PO SCH (08:58)
--- NOTE | 2020-11-02 10:48 | DS ---
(1) Ileus Problem: Resolved (2) Hypokalemia Problem: Resolved (3) Hypophosphatemia Problem: Resolved (4) Leukocytosis Problem: Acute (5) Enteritis Problem: Acute (6) GIB (gastrointestinal bleeding) Problem: Resolved (7) HTN (hypertension) Problem: Chronic Qualifiers: Hypertension type: essential hypertension Qualified Code(s): I10 - Essential (primary) hypertension (8) HLD (hyperlipidemia) Problem: Chronic Qualifiers: Hyperlipidemia type: pure hypercholesterolemia Qualified Code(s): E78.00 - Pure hypercholesterolemia, unspecified (9) Idiopathic thrombocytopenia Problem: Chronic (10) Osteoarthritis Problem: Chronic Qualifiers: Osteoarthritis location: unspecified site Osteoarthritis type: primary Qualified Code(s): M19.91 - Primary osteoarthritis, unspecified site (11) Left wrist pain Problem: Resolved (12) Gout attack Problem: Acute (13) Gout Problem: Chronic Qualifiers: Gout site: hand Gout etiology: unspecified cause Chronicity: acute Laterality: left Qualified Code(s): M10.9 - Gout, unspecified Date of Discharge:: 11/02/20 Hospital Course: Naomi Levin is a 80-year-old white female with past medical history significant for COPD, degenerative disc disease of the lumbar spine, spinal stenosis, idiopathic thrombocytopenia, gout who was admitted on 10/20/2020 because of sensation of feeling very weak. The patient was seen in the emergency room on 10/10/2020 and was treated with IV Rocephin x 1 and sent home on ciprofloxacin for pneumonia and UTI. She followed up with me on 10/13/2020 and she was still was not feeling well. Her chest x-ray showed chronic type findings with no acute cardiopulmonary findings. Her CT angiogram on 10/10/2020 did show bibasilar heterogeneous opacities possibly atelectasis but cannot rule out superimposed infection or aspiration. It was negative for his pulmonary embolism. The report of her urine culture and sensitivity came out late in the afternoon and it showed E. coli sensitive to both ciprofloxacin and Levaquin. Since we do not usually use ciprofloxacin for pneumonia we changed it to Levaquin. We also gave her prednisone 40 mg PO Q daily for 5 days and continued with her breathing treatments- inhalers and nebulizers for her shortness of breath and wheezing. She was instructed to return to clinic in 1 week and stay on a potassium rich diet list. The patient had runny large bowel movement this morning and felt very weak after that and so they called EMS. In the emergency room she was found to have a WBC count of 35,000 and a lactate of 2.8, K 3.2, Cr 0.98. Her chest x-ray showed chronic findings with no acute infiltrates. Her urinalysis was also unremarkable. .Naomi was admitted for severe weakness, leukocytosis of 35.5 and lactic acidosis having failed outpatient antibiotic treatment. She also had abdominal pain and had maroonish liquid stool on the medical floor. Suspecting enterocolitisinfectious versus inflammatory versus ischemic -as a possible cause of her leukocytosis we did a CT scan of her abdomen and pelvis which showed nonspecific enteritis.. Dr. Loving was consulted. She is still complaining of abdominal pain and weakness. Her abdominal pain persisted and AXR showed PSBO vs Ileus. She did have hypokalemia. This was replenished and she was put NPO. She gradually improved with resumption of BM and her diet was progressed. She had 10 days of IV Rocephin and IV metronidazole. She can be discharged today. Procedures Performed: none Results and Findings: Lab Pending Results 10/20/20 12:23: WBC 35.1 H, RBC 5.43 H, Hgb 14.8, Hct 45.7, MCV 84.2, MCH 27.3, MCHC 32.4, RDW 13.6, Plt Count 258, MPV 11.9, Neutrophils % (Manual) 85 H, Lymphocytes % (Manual) 6 L, Monocytes % (Manual) 9, Neutrophils # (Manual) 29.8 H, Lymphocytes # (Manual) 2.1, Monocytes # (Manual) 3.2 H, Platelet Estimate Normal, RBC Morphology Normal 10/20/20 12:23: Sodium 140, Plasma Sodium 141, Potassium 3.2 L, Chloride 98, Carbon Dioxide 31.1, Anion Gap 14.1 H, BUN 30 H D, Creatinine 0.98, Est GFR (Non-Af Amer) 58 L D, BUN/Creatinine Ratio 30.6 H, Random Glucose 145 H, Calcium 9.6, Calcium Adj for Albumin 9.5, Total Bilirubin 1.1, AST 19, ALT 27, Alkaline Phosphatase 114, Total Protein 7.2, Albumin 3.7 10/20/20 12:23: Lactic Acid, Venous 2.8 H* 10/20/20 12:51: Stl C.difficile Tox A&B Negative 10/20/20 13:48: SARS-CoV-2 (PCR) Not detected 10/20/20 14:31: Urine Color Yellow, Urine Appearance Clear, Urine pH 6.0, Ur Specific [place] >=1.030, Urine Protein 30 H, Urine Glucose (UA) Negative, Urine Ketones Negative, Urine Blood Negative, Urine Nitrate Negative, Urine Bilirubin Negative, Urine Urobilinogen Normal, Ur Leukocyte Esterase Negative, Urine RBC Trace, Urine WBC Trace H, Ur Epithelial Cells Trace, Urine Bacteria Trace, Hyaline Casts 0-5 H, Urine Mucus Trace, Urine Culture Comments No culture indicated 10/20/20 15:54: Lactic Acid, Venous 3.0 H* 10/21/20 02:30: Stool Occult Blood Positive H 10/21/20 06:45: WBC 32.9 H, RBC 4.83, Hgb 13.2, Hct 40.8, MCV 84.5, MCH 27.3, MCHC 32.4, RDW 13.7, Plt Count 163, MPV 12.5, Immature Gran % (Auto) 0.80 H, Immature Gran # (Auto) 0.27 H, Neutrophils % 82.4 H, Neutrophils % (Manual) 86 H, Band Neuts % (Manual) 2, Lymphocytes % 6.7 L, Lymphocytes % (Manual) 5 L, Monocytes % 9.9 H, Monocytes % (Manual) 7, Eosinophils % 0.0, Basophils % 0.2, Nucleated RBC % 0.0, Neutrophils # 27.1 H, Neutrophils # (Manual) 28.3 H, Lymphocytes # 2.21, Lymphocytes # (Manual) 1.6, Monocytes # 3.2 H, Monocytes # (Manual) 2.3 H, Eosinophils # 0.0, Absolute Basophils 0.1, Platelet Estimate Normal, RBC Morphology Normal 10/21/20 06:45: Sodium 139, Plasma Sodium 140, Potassium 3.2 L, Chloride 102, Carbon Dioxide 31.0, Anion Gap 9.2, BUN 16, Creatinine 0.54, Est GFR (Non-Af Amer) 116 D, BUN/Creatinine Ratio 29.6 H, Random Glucose 146 H, Calcium 8.6, Lactate Dehydrogenase 154, Creatine Kinase 45, C-Reactive Prot, Quant 20.5 H 10/21/20 06:45: ESR 19 H 10/21/20 06:45: Lactic Acid, Venous 1.7 10/21/20 06:45: ANCA Screen Negative, c-ANCA Titer Dnr, p-ANCA Titer Dnr, Atypical p-ANCA Titer Dnr 10/22/20 06:46: WBC 31.8 H, RBC 4.38, Hgb 12.1 L, Hct 37.2, MCV 84.9, MCH 27.6, MCHC 32.5, RDW 13.5, Plt Count 117 L, MPV 12.0, Neutrophils % (Manual) 90 H, Band Neuts % (Manual) 2, Lymphocytes % (Manual) 3 L, Monocytes % (Manual) 5, Neutrophils # (Manual) 28.6 H, Lymphocytes # (Manual) 1.0 L, Monocytes # (Manual) 1.6 H, Platelet Estimate Normal, RBC Morphology Normal 10/22/20 06:46: Sodium 137, Plasma Sodium 138, Potassium 2.9 L, Chloride 102, Carbon Dioxide 27.5, Anion Gap 10.4, BUN 8, Creatinine 0.58, Est GFR (Non-Af Amer) 107, BUN/Creatinine Ratio 13.8, Random Glucose 137 H, Calcium 8.3 10/23/20 06:30: WBC 24.4 H D, RBC 4.52, Hgb 12.4 L, Hct 38.1, MCV 84.3, MCH 27.4, MCHC 32.5, RDW 13.3, Plt Count 111 L, MPV 11.9, Neutrophils % (Manual) 89 H, Band Neuts % (Manual) 5 H, Lymphocytes % (Manual) 2 L, Monocytes % (Manual) 4, Neutrophils # (Manual) 21.7 H, Lymphocytes # (Manual) 0.5 L, Monocytes # (Manual) 1.0, Platelet Estimate Normal, RBC Morphology Normal 10/23/20 06:30: Sodium 135, Plasma Sodium 135, Potassium 3.0 L, Chloride 101, Carbon Dioxide 29.5, Anion Gap 7.5, BUN 8, Creatinine 0.57, Est GFR (Non-Af Amer) 109, BUN/Creatinine Ratio 14.0, Random Glucose 106, Calcium 8.0 10/24/20 06:25: WBC 22.2 H, RBC 4.88, Hgb 13.3, Hct 41.0, MCV 84.0, MCH 27.3, MCHC 32.4, RDW 13.2, Plt Count 134 L, MPV 13.0 H, Neutrophils % (Manual) 82 H, Band Neuts % (Manual) 6 H, Lymphocytes % (Manual) 3 L, Monocytes % (Manual) 7, Eosinophils % (Manual) 1, Neutrophils # (Manual) 18.2 H, Lymphocytes # (Manual) 0.7 L, Monocytes # (Manual) 1.6 H, Eosinophils # (Manual) 0.2, Atypic/Reactive Lymphs 1, Platelet Estimate Decreased L, RBC Morphology Normal 10/24/20 06:25: Sodium 136, Plasma Sodium 136, Potassium 3.2 L, Chloride 100, Carbon Dioxide 28.9, Anion Gap 10.3, BUN 7, Creatinine 0.60, Est GFR (Non-Af Amer) 103, BUN/Creatinine Ratio 11.7, Random Glucose 116 H, Calcium 8.4 10/25/20 09:36: WBC 15.4 H D, RBC 4.95, Hgb 13.7, Hct 41.5, MCV 83.8, MCH 27.7, MCHC 33.0, RDW 13.2, Plt Count 170, MPV 11.3, Immature Gran % (Auto) 1.40 H, Immature Gran # (Auto) 0.21 H, Neutrophils % 81.1 H, Lymphocytes % 9.2 L, Monocytes % 7.4, Eosinophils % 0.6, Basophils % 0.3, Nucleated RBC % 0.0, Neutrophils # 12.5 H, Lymphocytes # 1.42 L, Monocytes # 1.1 H, Eosinophils # 0.1, Absolute Basophils 0.1 10/25/20 09:36: Sodium 137, Plasma Sodium 137, Potassium 3.0 L, Chloride 100, Carbon Dioxide 30.3, Anion Gap 9.7, BUN 7, Creatinine 0.55, Est GFR (Non-Af Amer ) 114, BUN/Creatinine Ratio 12.7, Random Glucose 95, Calcium 7.8 L, Calcium Adj for Albumin 8.8, Total Bilirubin 0.5, AST 27, ALT 25, Alkaline Phosphatase 116, Total Protein 4.8 L, Albumin 2.3 L 10/26/20 06:00: WBC 15.6 H, RBC 4.90, Hgb 13.5, Hct 40.8, MCV 83.3, MCH 27.6, MCHC 33.1, RDW 13.2, Plt Count 203, MPV 11.4, Immature Gran % (Auto) 2.30 H, Immature Gran # (Auto) 0.36 H, Neutrophils % 77.6 H, Lymphocytes % 9.4 L, Monocytes % 9.7 H, Eosinophils % 0.6, Basophils % 0.4, Nucleated RBC % 0.0, Neutrophils # 12.1 H, Lymphocytes # 1.47 L, Monocytes # 1.5 H, Eosinophils # 0.1, Absolute Basophils 0.1 10/26/20 06:00: Sodium 138, Plasma Sodium 138, Potassium 2.7 L, Chloride 100, Carbon Dioxide 25.1, Anion Gap 15.6 H, BUN 7, Creatinine 0.57, Est GFR (Non-Af Amer) 109, BUN/Creatinine Ratio 12.3, Random Glucose 91, Calcium 7.6 L, Calcium Adj for Albumin 8.8, Total Bilirubin 0.5, AST 46, ALT 41, Alkaline Phosphatase 122, Total Protein 5.2 L, Albumin 2.1 L 10/27/20 06:42: WBC 13.0 H, RBC 4.86, Hgb 13.2, Hct 40.3, MCV 82.9, MCH 27.2, MCHC 32.8, RDW 13.6, Plt Count 169, MPV 10.6, Neutrophils % (Manual) 76 H, Band Neuts % (Manual) 1, Lymphocytes % (Manual) 5 L, Monocytes % (Manual) 14 H, Neutrophils # (Manual) 9.9 H, Lymphocytes # (Manual) 0.7 L, Monocytes # (Manual) 1.8 H, Atypic/Reactive Lymphs 4 H, Platelet Estimate Normal, RBC Morphology Normal 10/27/20 06:42: Sodium 130 L, Plasma Sodium 131, Potassium 2.7 L, Chloride 97, Carbon Dioxide 28.0, Anion Gap 7.7, BUN 6, Creatinine 0.50, Est GFR (Non-Af Amer) 127, BUN/Creatinine Ratio 12.0, Random Glucose 141 H D, Calcium 7.7 L, Phosphorus 2.1 L, Magnesium 1.3 10/27/20 18:17: Potassium 3.2 L 10/28/20 06:05: WBC 14.1 H, RBC 4.79, Hgb 13.1, Hct 40.0, MCV 83.5, MCH 27.3, MCHC 32.8, RDW 13.9, Plt Count 171, MPV 11.2, Neutrophils % (Manual) 75, Band Neuts % (Manual) 3 H, Lymphocytes % (Manual) 11 L, Monocytes % (Manual) 11 H, Neutrophils # (Manual) 10.6 H, Lymphocytes # (Manual) 1.6, Monocytes # (Manual) 1.6 H, Platelet Estimate Normal, RBC Morphology Normal 10/28/20 06:05: Sodium 136, Plasma Sodium 136, Potassium 3.5, Chloride 101, Carbon Dioxide 27.1, Anion Gap 11.4, BUN 3, Creatinine 0.42, Est GFR (Non-Af Amer) 155 H D, BUN/Creatinine Ratio 7.1 L, Random Glucose 120 H, Calcium 7.7 L, Phosphorus 2.6 D, Magnesium 1.5 10/29/20 06:45: Sodium 134, Plasma Sodium 134, Potassium 3.1 L, Chloride 97, Carbon Dioxide 26.9, Anion Gap 13.2, BUN 4, Creatinine 0.47, Est GFR (Non-Af Amer) 136 H, BUN/Creatinine Ratio 8.5 L, Random Glucose 117 H, Calcium 8.2, Calcium Adj for Albumin 9.0, Phosphorus 2.9 D, Magnesium 1.4, Total Bilirubin 0.7, AST 13, ALT 30, Alkaline Phosphatase 91, Total Protein 5.9 L, Albumin 2.6 L 11/01/20 06:10: ESR 42 H 11/01/20 06:10: C-Reactive Prot, Quant 6.5 H 11/01/20 06:11: WBC 13.7 H, RBC 4.68, Hgb 12.7, Hct 39.1, MCV 83.5, MCH 27.1, MCHC 32.5, RDW 13.7, Plt Count 159, MPV 11.6, Immature Gran % (Auto) 0.70 H, Immature Gran # (Auto) 0.10 H, Neutrophils % 78.1 H, Lymphocytes % 10.9 L, Monocytes % 8.2, Eosinophils % 1.8, Basophils % 0.3, Nucleated RBC % 0.0, Neutrophils # 10.7 H, Lymphocytes # 1.50, Monocytes # 1.1 H, Eosinophils # 0.2, Absolute Basophils 0.0 11/01/20 06:11: Sodium 134, Plasma Sodium 134, Potassium 4.2 D, Chloride 99, Carbon Dioxide 25.7, Anion Gap 13.5, BUN 5, Creatinine 0.49, Est GFR (Non-Af Amer) 130, BUN/Creatinine Ratio 10.2, Random Glucose 117 H, Uric Acid 2.0 L, Calcium 8.3, Phosphorus 3.3 D, Magnesium 1.4 Discharge Location: Home Disposition: Home self-care Condition: Stable Discharge Activity: Activity as tolerated Discharge Diet: Other - soft diet with low fiber then progress to regular diet with high fiber. Low purine diet. Referrals: Nancy Ruiz MD [Primary Care Provider] - Problem Oriented Discharge Instructions to Patient/Family: Low-Purine Eating Plan, Gout, [id number] Additional Patient Instructions (free text): Follow-up with PCP in 1 week. Prescriptions (Any new or edited meds): Potassium Chloride [K-Dur] 20 meq PO DAILY #30 tablet.sa Transmission Status: Pending to [place] Lisinopril 40 mg PO BID #60 tab Transmission Status: Pending to [place] amLODIPine BESYLATE [Norvasc] 10 mg PO DAILY #30 tab Transmission Status: Pending to [place] Sennosides/Docusate Sodium [Senokot-S] 2 tab PO HS #60 tab Transmission Status: Pending to [place], [place] Acetaminophen [Tylenol] 650 mg PO Q6H PRN #90 tab PRN Reason: Mild Pain (Pain Scale 1-3) Transmission Status: Pending to [place], [place] Complete Home Medications List: Complete Home Medication List: Calcium Carbonate/Vitamin D3 [Calcium 600 + Vit D 400 Tablet] 1 tab PO BID 09/25/14 ipratropium 0.5 mg-albuterol 3 mg (2.5 mg base)/3 mL nebulization soln 3 ml IH BID #90 ml 12/31/18 vit C 250 mg-vit E 90 mg-zinc 40 mg-copper 1 [id number] capsule 1 tab PO BID 02/05/19 albuterol sulfate 90 mcg/actuation aerosol inhaler 2 puff IH Q4H PRN #18 g 03/26/20 atorvastatin 20 mg tablet 20 mg PO DAILY #90 tab 07/02/20 levothyroxine 75 mcg tablet 75 mcg PO DAILY #90 tab 07/02/20 Colchicine [Colcrys] 0.6 mg PO prn 10/07/20 Cyclobenzaprine HCl [Flexeril] 10 mg PO TID PRN #20 tab 10/07/20 Vit A/Vit C/Vit E/Zinc/Copper [Preservision Areds Tablet] 2 ea PO DAILY 10/07/20 bumetanide 2 mg tablet 2 mg PO DAILY #30 tab 10/13/20 Acetaminophen [Tylenol] 650 mg PO Q6H PRN #90 tab 11/02/20 Lisinopril 40 mg PO BID #60 tab 11/02/20 Potassium Chloride [K-Dur] 20 meq PO DAILY #30 tablet.sa 11/02/20 Sennosides/Docusate Sodium [Senokot-S] 2 tab PO HS #60 tab 11/02/20 amLODIPine BESYLATE [Norvasc] 10 mg PO DAILY #30 tab 11/02/20 Forms: Patient Portal Registration
[2020-11-02 15:15] VITALS: BP 153/72
== END 2020-11-02 15:30 | disposition home health service (06) | DRG 391 ==
LOC: ER 12:07 → MS 15:39
PROVIDERS: ADMIT Internal Medicine; ATTEND Internal Medicine
DX: I10 Essential (primary) hypertension; N39.0 Urinary tract infection, site not specified; E78.5 Hyperlipidemia, unspecified; J18.9 Pneumonia, unspecified organism; N17.9 Acute kidney failure, unspecified; E87.6 Hypokalemia; K92.2 Gastrointestinal hemorrhage, unspecified; M19.91 Primary osteoarthritis, unspecified site; D69.3 Immune thrombocytopenic purpura; K52.9 Noninfective gastroenteritis and colitis, unspecified; K56.7 Ileus, unspecified; E87.2 Acidosis